=== PATIENT | female | born 1940 | race Caucasian/White ===

== ENCOUNTER 2021-11-22 11:17 | Outpatient (CLI) | payer MEDICARE, SELFPAY ==
--- NOTE | 2021-11-22 11:33 | MM_ITS ---
WS: [id number] BILATERAL DIGITAL SCREENING MAMMOGRAPHY WITH CAD CLINICAL INFORMATION: SCREENING HISTORY: Screening mammogram. No current complaints. COMPARISON: September 23, 2020 TECHNIQUE: Bilateral CC and MLO views. FINDINGS: Scattered fibroglandular densities bilaterally. Punctate and lucent centered calcifications. Vascular calcification. Biopsy marker left breast. No suspicious focal mass, asymmetry, calcifications, or ar chitectural distortion. No evidence of malignancy. MM/[place] [id number] IMPRESSION: BI-RADS: 2-Benign FOLLOW UP: 1 Year Follow-up Recommend return to annual screening mammography.
== END 2021-11-22 11:18 | disposition home or self-care (01) ==
LOC: RADSHAW 11:28
PROVIDERS: PCP Nurse Practitioner Family; Visit Provider Physician Assistant Medical
DX: Z12.31 Encounter for screening mammogram for malignant neoplasm of breast (principal)
CPT/HCPCS: 77067

== ENCOUNTER 2022-12-27 07:33 | Outpatient (CLI) | payer MEDICARE, SELFPAY ==
--- NOTE | 2022-12-27 08:24 | MM_ITS ---
WS: [id number] BILATERAL SCREENING DIGITAL TOMOSYNTHESIS MAMMOGRAM WITH CAD HISTORY: SCREENING COMPARISON: 11/22/2021, 09/23/2020 and 06/28/2018 Bilateral CC and MLO views with tomosynthesis and synthetic mammography submitted. Computer aided det ection analyzed. Breast composition: There are scattered areas of fibroglandular density. No suspicious masses, microc alcifications or architectural distortion. No change in the bilateral breast nodules and calcificatio ns. MM/[place] [id number] IMPRESSION: BI-RADS: 2-Benign FOLLOW UP: 1 Year Follow-up
== END 2022-12-27 07:34 | disposition home or self-care (01) ==
PROVIDERS: PCP Nurse Practitioner Family; Visit Provider Nurse Practitioner Family
DX: Z12.31 Encounter for screening mammogram for malignant neoplasm of breast (principal)
CPT/HCPCS: 77063; 77067

== ENCOUNTER 2024-02-21 09:51 | Outpatient (CLI) | payer MEDICARE, SELFPAY ==
--- NOTE | 2024-02-21 10:00 | MM_ITS ---
WS: [id number] BILATERAL SCREENING DIGITAL TOMOSYNTHESIS MAMMOGRAM WITH CAD HISTORY: SCREENING COMPARISON: 12/27/2022, 11/22/2021, 09/23/2020 Bilateral CC and MLO views with tomosynthesis and synthetic mammography submitted. Computer aided det ection analyzed. Breast composition: There are scattered areas of fibroglandular density. No suspicious masses, microc alcifications or architectural distortion. Bilateral asymmetries, calcifications and nodules within e ach breast are stable over multiple prior years. No new mass or calcification. IMPRESSION: MM/[place] [id number] BI-RADS: 2-Benign FOLLOW UP: 1 Year Follow-up
== END 2024-02-21 09:52 | disposition home or self-care (01) ==
LOC: MOBLMAM 09:57
PROVIDERS: PCP Registered Nurse; Visit Provider Registered Nurse
DX: Z12.31 Encounter for screening mammogram for malignant neoplasm of breast (principal)
CPT/HCPCS: 77063; 77067

== ENCOUNTER → 2024-03-28 14:27 | Outpatient (BNVA) | payer MEDICARE, SELFPAY | PROVIDERS: PCP Registered Nurse; Visit Provider Dermatology | DX: D48.2 Neoplasm of uncertain behavior of peripheral nerves and autonomic nervous system (principal); L72.0 Epidermal cyst; L82.1 Other seborrheic keratosis; B35.1 Tinea unguium; L81.4 Other melanin hyperpigmentation | CPT/HCPCS: 10060; 11102; 99203 ==

== ENCOUNTER 2025-03-26 10:53 | Outpatient (CLI) | payer MEDICARE, SELFPAY ==
--- NOTE | 2025-03-26 11:00 | MM_ITS ---
WS: [id number] BILATERAL 3D TOMOSYNTHESIS DIGITAL SCREENING MAMMOGRAPHY WITH CAD CLINICAL INFORMATION: SCREENING HISTORY: Screening mammogram. No current complaints. COMPARISON: 2023 TECHNIQUE: Bilateral CC and MLO views. FINDINGS: The breasts are composed of heterogeneous fibroglandular density tissue, which can limit the detection of small underlying mass lesions. No suspicious mass, asymmetry, calcifications, or architectural distortion. No evidence of malignancy. Dystrophic calcification RIGHT breast. Vascular calcifications. Biopsy clip LEFT breast MM/MM [facility] tomosynthesis [id number] IMPRESSION: DENSITY: The breasts are heterogeneously dense, which may obscure small masses. BI-RADS: 2 - Benign FOLLOW UP: 1 Year Follow-up Recommend return to annual screening mammography.
== END 2025-03-26 10:54 | disposition home or self-care (01) ==
PROVIDERS: PCP Registered Nurse; Visit Provider Registered Nurse
DX: Z12.31 Encounter for screening mammogram for malignant neoplasm of breast (principal); R92.333 Mammographic heterogeneous density, bilateral breasts; R92.1 Mammographic calcification found on diagnostic imaging of breast
CPT/HCPCS: 77063; 77067

== ENCOUNTER 2025-06-28 13:55 | Observation (INO) | payer MEDICARE, SELFPAY ==
[2025-06-28] VITALS (14 sets, daily range): BP systolic 124–146; BP diastolic 53–77; PULSE 76–106; RESP 18–19; TEMP 36.7–36.8; O2SAT 87–94; BMI 27.9
--- OUTSIDE RECORDS SUMMARY | 2025-06-28 14:04 | XMS_ITS | Encounter Summary ---
Author Organization [facility] Address [address] [place] [address] Care Team Providers Care Industrial Gas Fitter Name Role Phone Erika Saldivar MD Primary Care Provider [phone] Reason for Referral * Radiology Services (Routine) - Closed Specialty Diagnoses / Procedures Referred By Contac t Referred To Contact Radiology Diagnoses Abnormal mammogram Procedures MAMMO DIAG BILAT 3D MAGALI W OR WO CAD MAMMO DIAG UNI LEFT 3D MAGALI W OR WO CAD MAMMO DIAGNOSTIC UNI LEFT W OR WO CAD CHG DIAGNOSTIC MAMMOGRAPHY COMPUTER-AIDED DETCJ UNI CHG DIGITAL BREAST TOMOSYNTHESIS UNILATERAL CHG DIAGNOSTIC MAMMOGRAPHY COMPUTER-AIDED DETCJ BI CHG DIGITAL BREAST TOMOSYNTHESIS BILATERAL Ilan Rushing PA [facility] [address] [address] Phone: tel: fax: Referral ID Status Reason Start Date Expiration Date V isits Requested Visits Authorized [id number] Closed [facility] TO SCHEDULE (SGF) 07/02/2019 08/01/2020 1 1 Encounter Details Date Type Department Care Team (Late st Contact Info) Description 07/04/2019 Ancillary Orders [facility] [place] [address] [facility] [address] [place] [phone] Ilan Rushing PA NO ADDRESS ON FILE Abnormal mammogram Social History Tobacco Use Types Packs/Day Years Used Date Smoking Tobacco: Never Smokeless Tobacco: Never Alcohol Use Standard Drinks/Week Comments No 0 (1 standard drink = 0.6 oz pur e alcohol) Comments No Sex and Gender Information Value Date Recorded Sex Assigned at Not on file 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 Gender Identity Not on file Sexual Orientation Not on file Occupation Industry Job Start Date Job End Date Not on file Not on file Not on file Not on file documented as of this encounter Plan of Treatment Not on file documented as of this encounter Results * MAMMO DIAG BILAT 3D MAGALI W OR WO CAD (07/04/2019 10:36 AM CDT) Anatomical Region Laterality Modality Breast Bilateral Mammography 07/04/2019 10:0 8 AM CDT Narrative 07/04/2019 11:34 AM CDT Bilateral Diagnostic Mammogram, 07/04/2019: HISTORY: The patient is 78 years of age and had a benign left needle core biopsy performed here on 07/31/2018. Six-month follow-up was recommended but the patient did not return for the six month follow-up exam. 3D MLO, medial to lateral, and CC digital tomosynthesis images were acquired and synthesized 2D images (C view) were generated. This digital mammogram was also analyzed by the Computer Aided Detection System (CAD). Right 2-D MLO view was obtained as well. There is average breast parenchymal density. Comparison is made with prior exams of 07/31/2018, 06/28/2018, 01/10/2017, 04/24/2013, 04/10/2013, and 11/14/2007 which is a digitized prior exam. No significant change is seen on either side. No suspicious masses or calcifications are seen. The biopsy site upper inner on the left is stable. No significant change is seen. The patient was given a verbal and written report. Impression: No significant change is seen. I would recommend the patient resume screening mammography in one year. [id number] Ilan MONTANO MAMMO ORDERABLES Final Result documented in this encounter Visit Diagnoses Diagnosis Abnormal mammogram Abnormal mammogram, unspecified Abnormal mammogram Abnormal mammogram, unspecified documented in this encounter Additional Health Concerns Assessment Noted Time PHQ-9 Depression Total Score: 1 06/21/20 18 8:00 AM CDT documented as of this encounter Care Teams Industrial Gas Fitter Relationship Specialty Start Date End Date Erika Saldivar MD [address] [phone] PCP - General Family Practice 07/04/18 documented as of this encounter
--- OUTSIDE RECORDS SUMMARY | 2025-06-28 14:04 | XMS_ITS | Encounter Summary ---
Author Organization [facility] Address [address] [place] [address] Care Team Providers Care Advance Seal Delivery System Maintainer Name Role Phone Erika Saldivar MD Primary Care Provider [phone]- [phone] Encounter Details Date Type Department Care Team (Latest Contact Info) Description 11/08/2007 Outpatient Historical [facility] Medicine [address] [phone] Jese Willard MD NO ADDRESS ON FILE Routine Gynecological Examination Social History Tobacco Use Types Packs/Day Years Used Date Smoking Tobacco: Never Assessed Comments Unknown Sex and Gender Information Value Date Recorded Sex Assigned at Not on file 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
--- OUTSIDE RECORDS SUMMARY | 2025-06-28 14:04 | XMS_ITS | Encounter Summary ---
Author Organization [facility] Address [address] [place] [address] Care Team Providers Care Finance Mgr Name Role Phone Erika Saldivar MD Primary Care Provider Encounter Details Date Type Department Care Team (Latest Contact Info) Description 05/03/2000 Outpatient Historical [facility] Calculus of gallbladder without mention of cholecystitis or obstruction (Primary Dx) Social History Tobacco Use Types Packs/Day Years Used Date Smoking Tobacco: Never Assessed Comments Unknown Sex and Gender Information Value Date Recorded Sex Assigned at Not on file 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
--- OUTSIDE RECORDS SUMMARY | 2025-06-28 14:04 | XMS_ITS | Encounter Summary ---
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
--- OUTSIDE RECORDS SUMMARY | 2025-06-28 14:04 | XMS_ITS | Encounter Summary ---
Author Organization [facility] Address [address] [place] [address] Care Team Providers Care Electric Installer Name Role Phone Erika Saldivar MD Primary Care Provider Encounter Details Date Type Department Care Team (Latest Contact Info) Description 04/27/2000 Outpatient Historical [facility] [place] [address] [phone] Osteoarthrosis, unspecified whether generalized or localized, unspecified site (Primary Dx); Allergy, unspecified not elsewhere classified Social History Tobacco Use Types Packs/Day Years Used Date Smoking Tobacco: Never Assessed Comments Unknown Sex and Gender Information Value Date Recorded Sex Assigned at Not on file Legal Sex Female 3:11 AM SOCIAL MEDIA DESIGNER Gender Identity Not on file Sexual Orientation Not on file documented as of this encounter Plan of Treatment Not on file documented as of this encounter Visit Diagnoses Diagnosis Osteoarthrosis, unspecified whether generalized or localized, unspecified site- Primary Allergy, unspecified not elsewhere classified documented in this encounter Care Teams Electric Installer Relationship Specialty Start Date End Date Erika Saldivar MD [address] [phone] PCP - General Family Practice 07/04/18 documented as of this encounter
--- OUTSIDE RECORDS SUMMARY | 2025-06-28 14:04 | XMS_ITS | Clinical Summary ---
Author Organization [employer] Address [address] [facility] [address] Hatchn: Epic Prelude ADT [place]EN[place]ONT [address] Care Team Providers Care Grid Molder Name Role Phone Rm Elliott MD Primary Care Provider [phone] Allergies No known active allergies Medications cetirizine (ZyrTEC) 10 mg tablet Take 10 mg by mouth daily. Active latanoprost (XALATAN) 0.005 % solution INSTILL 1 DROP INTO EACH EYE IN THE EVENING 01/03/20 22 Active multivitamin (DAILY-SAUL) tablet Take 1 Tablet by mouth daily. 08/27/20 15 Active cholecalciferol, vitamin D3, 5,000 unit Take 400 Units by mouth daily. Active triamcinolone acetonide (KENALOG) 0.5 % CreamIndications:D ermatitis Apply to affected area 2 times daily. 15 Gram 01/31/20 24 Active gabapentin (NEURONTIN) 300 mg capsuleIndications :Peripheral polyneuropathy take 1 capsule by mouth three times daily 300 Capsule 2 06/05/20 24 Active fluticasone propionate (FLONASE) 50 mcg/spray [place], Suspension nasal inhalerIndications :Crackling sound in left ear Use 2 spray(s) in each nostril once daily 16 Gram 11/14/19 25 Active potassium CHLORIDE (KLOR-CON M10) 10 mEq Extended Release tabletIndications: HTN (hypertension), benign TAKE 1 TABLET BY MOUTH ONCE DAILY. 100 Tablet 2 02/15/20 25 Active simvastatin (ZOCOR) 20 mg tabletIndications: Hyperlipidemia, unspecified hyperlipidemia type TAKE 1 TABLET BY MOUTH ONCE DAILY AT BEDTIME 100 Tablet 3 02/25/20 25 Active hydroCHLOROthiazid e 12.5 mg tabletIndications: HTN (hypertension), benign TAKE 1 TABLET BY MOUTH ONCE DAILY (DOSE INCREASE) 100 Tablet 3 04/03/20 25 Active amLODIPine (NORVASC) 10 mg tabletIndications: HTN (hypertension), benign Take 1 Tablet (10 mg) by mouth daily. 100 Tablet 2 04/03/20 25 Active predniSONE (DELTASONE) 5 mg tabletIndications: Left-sided low back pain without sciatica, unspecified chronicity Take 6 tablets (all at once) on day 1, then decrease by 1 tablet daily until gone. 21 Tablet 05/27/20 25 Active Additional Information Patient not taking.Reported on 06/19/2025 tiZANidine (ZANAFLEX) 4 mg Tablet Take 1 Tablet (4 mg) by mouth every 8 hours as needed for Spasm. 90 Tablet 06/15/20 25 Active oxyCODONE-acetamin ophen (PERCOCET) 5-325 mg tabletIndications: Cervicalgia Take 1 Tablet by mouth every 6 hours as needed for Pain, Moderate. Max Daily Amount: 4 Tablets 20 Tablet 06/15/20 25 Active cyclobenzaprine (FLEXERIL) 5 mg TabletIndications: Strain of neck muscle, initial encounter Take 1 Tablet (5 mg) by mouth 3 times daily as needed for Spasm. 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 Dysfunction of left eustachian tube 02/28/2017 Lung nodule 02/28/2017 Peripheral neuropathy 03/17/2014 Stress fracture of tibia -left 05/21/2013 Medial meniscus tear-left 05/21/2013 Osteopenia 12/20/2011 Overview (03/11/2021): CT bone densitometry: Spine -1.1 (12/25) Vitamin D deficiency 02/16/2010 Overview (03/11/2021): Vitamin D: 18.9 (01/20) Screen for colon cancer 11/12/2008 Overview (03/11/2021): Colonoscopy: Never Hyperlipidemia Overview (03/11/2021): LDL: 154 (11/24); 165 (10/20) HDL: 44 (11/24) HTN (hypertension), benign Resolved Problems Problem Noted Date Diagnosed Date Resolved Date Type 2 diabetes mellitus wit hout complication, without long-term current use of insulin 08/17/2020 05/19/2021 Bilateral impacted cerumen 08/21/2017 1 11/18/2016 Cervical cancer screening 11/12/2008 Overview (03/10/2021): Pap 10/19: Normal. No hx of abnormals. Osteoporosis screening 11/12/200802/28 Overview (03/10/2021): BMD (11/20): Normal Breast CA Screening 11/12/2008 02/29/20 17 Overview (03/10/2021): Mammo: 03/25; 12/25; 02/20; 11/21; 11/20 Encounters Date Type Department Care Team Description 06/24/[address] [phone] Rm Elliott MD Question 06/19/2025 9:00 AM CDT Office Visit [address] [phone] Lety Arana FNP Strain of neck muscle, sequela (Primary Dx); Follow-up examination; Frail elderly; At high risk for caregiver role strain 06/18/2025 External Device Data STL ABSTRACTION Provider, Abstract 06/17/2025 External Device Data STL ABSTRACTION Provider, Abstract 06/17/2025 External Device Data STL ABSTRACTION Provider, Abstract 06/16/2025 Telephone [facility] [address] [place] [address] Rm Elliott MD Medication Assistance 06/16/2025 Telephone [facility] [address] [place] [address] Rm Elliott MD ER Follow Up 06/15/2025 10:11 AM CDT - 06/15/2025 1:29 PM CDT Emergency [facility] Emergency Medicine [address] [place] [address] Maurizio Cuello DO Cervicalangie (Primary Dx); Leg swelling Discharge Disposition: Home or Self Care 06/15/2025 Travel 06/13/2025 9:01 AM CDT - 06/13/2025 11:59 PM CDT Hospital Encounter [facility] [address] [place] [phone] Lety Arana FNP Discharge Disposition: Home or Self Care 06/13/2025 8:40 AM CDT Office Visit [address] [place] [address] Lety Arana FNP Strain of neck muscle, initial encounter (Primary Dx); Frail elderly; At high risk for caregiver role strain; Right leg swelling 06/13/2025 Results Follow-Up [address] [place] [address] Lety Arana FNP XR CERVICAL SPINE 2 OR 3 VIEWS 06/10/2025 Results Follow-Up [address] [place] [address] Lety Arana FNP US VENOUS DOPPLER LEG RIGHT 06/05/[address] [place] [address] Rm Elliott MD Results 06/04/2025 10:02 AM CDT - 06/04/2025 11:59 PM CDT Hospital Encounter [facility] [address] [place] [address] Lety Arnaa FNP Discharge Disposition: Home or Self Care 06/04/2025 9:20 AM CDT Office Visit [facility] [address] [place] [address] Lety Arana FNP Right calf pain (Primary Dx); Hyperlipidemia, unspecified hyperlipidemia type 05/28/2025 External Device Data STL ABSTRACTION Provider, Abstract 05/27/2025 9:08 AM CDT - 05/27/2025 11:59 PM CDT Hospital Encounter [facility] [address] [place] [address] Lety Arana FNP Discharge Disposition: Home or Self Care 05/27/2025 8:20 AM CDT Office Visit [address] [place] [address] Lety Arana FNP Left-sided low back pain without sciatica, unspecified chronicity (Primary Dx); Frail elderly; Osteopenia, unspecified location; Activity, other caregiving; Urinary frequency 05/27/2025 External Device Data STL ABSTRACTION Provider, Abstract 05/27/2025 Results Follow-Up [address] [place] [address] Lety Arana FNP XR LUMBAR SPINE 2 OR 3 VW, POC URINALYSIS DIPSTICK AUTOMATED, COMPREHENSIVE METABOLIC PANEL, Additional followed-up results: 2 05/27/[address] [place] [address] Lety Arana FNP Medication Assistance 05/13/2025 External Device Data STL ABSTRACTION Provider, Abstract 05/13/2025 External Device Data STL ABSTRACTION Provider, Abstract 05/06/2025 External Device Data STL ABSTRACTION Provider, Abstract 04/16/2025 External Device Data STL ABSTRACTION Provider, Abstract 04/03/2025 Refill [facility] 104 [facility] [address] [place] [phone] Rm Elliott MD HTN (hypertension), benign 04/03/2025 Refill [facility] [place] [address] [place] [phone] Rm Elliott MD HTN (hypertension), benign 03/28/2025 Results Follow-Up [facility] 104 [facility] [address] [place] [phone] Mable Hobson, ONCOLOGY REP SPECIALIST MAMMO 3D MAGALI SCREEN BILAT W OR WO CAD 03/28/2025 Orders Only [facility] [address] [place] [place] [phone] Sharon Castano Breast cancer screening by mammogram from Last 3 Months Immunizations Immunization Administration Dates Next Due (ADACEL/BOOSTRIX)(10 YR UP) TDAP VACCINE, 0.5ML, IM 08/23/2010,08/23/2010 (PFIZER ANEESH)(12 YR UP PRIMA RY SERIES) COVID-19 VACCINE - EMERGENCY USE AUTHORIZATION, MRNA, ANEESH(PF) 30 MCG/0.3 ML IM SUSP 02/22/2022 (PFIZER)(12 YR UP) COVID-19 VACCINE - EMERGENCY USE AUTHORIZATION, MRNA, [id number](PF) 30 MCG/0.3 ML IM SUSP 08/13/2021,01/01/2021,12/11/2020 (PNEUMOVAX 23)(50 YRS UP) PN EUMOCOCCAL POLYSACCHARIDE (PPV23) 0.5 ML, IM 11/08/2007,11/08/2007 (Pfizer Bivalent)(12 Yr Up) COVID-19 Vaccine - Emergency Use Authorization, MRNA, Lnp-S(Pf) 30 Mcg/0.3 Ml Susp 09/13/2022 INFLUENZA VACCINE HIGH DOSE QUADRIVALENT 65 YR UP PF IM 09/12/2023,09/08/2021,08/17/2020,08/17 INFLUENZA VACCINE HIGH DOSE TRIVALENT SPLIT VIRUS, (65 YR UP), 0.5ML (PF), IM 09/04/2024 Influenza Seasonal Unspecifi ed Formulation IM 08/27/2022,10/07/2019,01/06/2019,08/23,10/14/2009,11/12/2008,11/08/2007 ,11/08/2007 Influenza Seasonal Unspecifi ed Formulation PF IM 09/20/2013,10/12/2012,09/30/2011 Influenza Vaccine High Dose 65+ Yrs IM 1 11/13/2016,10/14/2016,10/14/2016,08/11,08/11/2015,09/10/2014,09/10/2014 Influenza Vaccine Split 3+ Yrs IM 08/23/2010,12/2008,11/12/2008 Influenza Vaccine Split 3+ Yrs PF IM 09/20/2013, 10/12/2012,09/30/2011 Family History Medical History Relation Name Comments Heart Disease Brother MAT HALF Breast Cancer Maternal Cousin 50s or 60s Breast Cancer Maternal Grandmother 80s Breast Cancer Mother 80s Other Mother Alzheimer's Colon Cancer Neg Hx Ovarian Cancer Neg Hx Relation Name Status Comments Brother MAT HALF Daughter 1 Alive Daughter 2 Alive Daughter 3 Alive Maternal Cousin Maternal Grandmother Mother Sister MAT HALF Alive Son 1 Alive Son 2 Alive Son 3 Alive Son 4 Alive Social History Tobacco Use Types Packs/Day Years Used Date Smoking Tobacco: Never Passive Smoke Exposure: Never Smokeless Tobacco: Never Tobacco Cessation:Counseling Given: No Alcohol Use Standard Drinks/Week Comments No 0 (1 standard drink = 0.6 oz pur e alcohol) Comments No Sex and Gender Information Value Date Recorded Sex Assigned at Not on file Legal Sex 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 Gender Identity Not on file Sexual Orientation Not on file Last Filed Vital Signs Vital Sign Reading Time Taken Comments Blood Pressure 136/79 06/19/2025 8:54 AM CDT Pulse 82 06/19/2025 8:54 AM CDT Temperature 36.4 C (97.5 F) 06/19/2025 8:54 AM CDT Respiratory Rate 16 06/19/2025 8:54 AM CDT Oxygen Saturation 96% 06/19/2025 8:54 AM CDT Inhaled Oxygen Concentration - - Weight 88.1 kg (194 lb 3.2 oz) 06/19/2025 8:54 A M CDT Height 175.3 cm (5' 9 ) 06/19/2025 8:54 AM CDT Body Mass Index 28.68 06/19/2025 8:54 AM CDT Plan of Treatment Upcoming Encounters Date Type Department Care Team (Late st Contact Info) Description 02/10/2026 10:40 AM CDT Office Visit [facility] [address] [phone] Rm Elliott MD [address] [place] [address] Health Maintenance Due Date Last Done Comments ZOSTER VACCINE (1 of 2) 1992 PNEUMOCOCCAL VACCINE 50+ YEA RS (2 of 2 - PCV) 11/08/2008 11/08/2007, 11/08/2007 OSTEOPOROSIS SCREENING 12/15/2016 2, 12/15/2011, 12/15/2011 RSV VACCINE (60+ or ) (1 - 1-dose 75+ series) 2017 DTAP/TDAP/TD VACCINES (3 - T d or Tdap) 08/23/2020 08/23/2010, 08/23/2010 COVID-19 Vaccine (2023-2 5 season) 2024 09/13/2022, 02/22/2022, 08/13/2021, Additional history exists INFLUENZA VACCINE (#1) 2025 , 09/12/2023, 08/27/2022, Additional history exists Medicare Ad[place] ([place]) Preventative Visit/Annual Wellness Visit Completed 02/10/2025, 02/09/2024, 01/17/2023, Additional history exists Procedures Procedure Name Priority Date/Time Associated Diagnosis Comments CT CERVICAL SPINE WO CONTRAST Stat 06/15/2025 11:18 AM CDT XR CHEST PA AND LATERAL 2 VW Stat 06/15/2025 11:18 AM CDT C-REACTIVE PROTEIN Stat 06/15/2025 10 :43 AM CDT SEDIMENTATION RATE Stat 06/15/2025 10 :43 AM CDT D-DIMER Stat 06/15/2025 10:43 AM CDT CBC WITH DIFFERENTIAL Stat 06/15/2025 10:43 AM CDT COMPREHENSIVE METABOLIC PANEL Stat 06/15/2025 10:43 AM CDT XR CERVICAL SPINE 2 OR 3 VIEWS Routine 06/13/2025 9:18 AM CDT Strain of neck muscle, initial encounter US VENOUS DOPPLER LEG RIGHT Stat 06/04/2025 11:06 AM CDT Right calf pain URINE CULTURE Routine 05/27/2025 2:17 PM CDT Left-sided low back pain without sciatica, unspecified chronicity Urinary frequency XR LUMBAR SPINE 2 OR 3 VW Routine 05/27/2025 9:20 AM CDT Left-sided low back pain without sciatica, unspecified chronicity CBC WITH DIFFERENTIAL Routine 05/27/2025 8:40 AM CDT Left-sided low back pain without sciatica, unspecified chronicity COMPREHENSIVE METABOLIC PANEL Routine 05/27/2025 8:40 AM CDT Left-sided low back pain without sciatica, unspecified chronicity POC URINALYSIS DIPSTICK AUTOMATED Routine 05/27/2025 8:30 AM CDT Left-sided low back pain without sciatica, unspecified chronicity CT BONE DENS STUDY 1+ SITE AXIAL Routine 12/15/2011 from Last 3 Months or Most Recently Relevant to Health Maintenance Results * CT CERVICAL SPINE WO CONTRAST (06/15/2025 11:18 AM CDT) Anatomical Region Laterality Modality Spine Computed Tomogra phy 06/15/2025 10:5 2 AM CDT Impressions 06/15/2025 11:26 AM CDT IMPRESSION: 1. No findings to suggest acute osseous injury to the cervical spine. 2. Right thyroid lobe nodule. Nonemergent follow-up ultrasound in the outpatient setting is recommended for further characterization. Narrative 06/15/2025 11:[address] CERVICAL SPINE WO CONTRAST Reason For Exam: Compression fracture, cervical. Diagnosis: Leg swelling; Cervicalgia. COMPARISON: None FINDINGS: Occipital condyles are intact. Vertebral body heights are preserved. Atlantodental interval is within normal limits. No acute fracture or subluxation is seen. Precervical soft tissues are grossly unremarkable. No epidural hematoma is noted. Moderate/severe multilevel degenerative changes are again noted throughout the cervical spine. 2.2 cm right thyroid lobe nodules incidentally noted. Procedure Note Anil Albarran MD - 06/15/2025 CT CERVICAL SPINE WO CONTRAST Reason For Exam: Compression fracture, cervical. Diagnosis: Leg swelling; Cervicalgia. COMPARISON: None FINDINGS: Occipital condyles are intact. Vertebral body heights are preserved. Atlantodental interval is within normal limits. No acute fracture or subluxation is seen. Precervical soft tissues are grossly unremarkable. No epidural hematoma is noted. Moderate/severe multilevel degenerative changes are again noted throughout the cervical spine. 2.2 cm right thyroid lobe nodules incidentally noted. IMPRESSION: 1. No findings to suggest acute osseous injury to the cervical spine. 2. Right thyroid lobe nodule. Nonemergent follow-up ultrasound in the outpatient setting is recommended for further characterization. Maurizio Cuello DO CT ORDERABLES Final Result * XR CHEST PA AND LATERAL 2 VW (06/15/2025 11:18 AM CDT) Anatomical Region Laterality Modality Chest Computed Radiogr aphy 06/15/2025 11:1 8 AM CDT Impressions 06/15/2025 11:26 AM CDT IMPRESSION: No acute cardiopulmonary process. Narrative 06/15/2025 11:26 AM CDT XR CHEST PA AND LATERAL 2 VW Reason For Exam: Shortness of Breath SOB. Diagnosis: Leg swelling; Cervicalgia. COMPARISON: None FINDINGS: Right midlung calcified granuloma. Cardiomediastinal silhouette is within normal limits. No focal consolidation, pleural effusion, or pneumothorax is seen. No acute osseous abnormality is appreciated. Procedure Note Anil Albarran MD - 06/15/2025 XR CHEST PA AND LATERAL 2 VW Reason For Exam: Shortness of Breath SOB. Diagnosis: Leg swelling; Cervicalgia. COMPARISON: None FINDINGS: Right midlung calcified granuloma. Cardiomediastinal silhouette is within normal limits. No focal consolidation, pleural effusion, or pneumothorax is seen. No acute osseous abnormality is appreciated. IMPRESSION: No acute cardiopulmonary process. Mauriziomalathi Cuello DIAGNOSTIC IMAGING ORDERABLES Final Result * (ABNORMAL) CBC WITH DIFFERENTIAL (06/15/2025 10:43 AM CDT) Only the most recent of2 resultswithin the time period is included. WBC 12.2(H) 4.0 - 10.0 K/uL 06/15/2025 10:55 AM [facility] RBC 4.89 3.93 - 5.22 M/uL 06/15/2025 10:55 AM [facility] HEMOGLOBIN 14.4 11.2 - 15.7 g/dL 06/15/2025 10:55 AM [facility] HEMATOCRIT 42.3 34.1 - 44.9 % 06/15/2025 10:55 AM [facility] MCV 86.5 79.4 - 94.8 fL 06/15/2025 10:55 AM [facility] MCH 29.4 25.6 - 32.2 pg 06/15/2025 10:55 AM [facility] MCHC 34.0 32.2 - 35.5 g/dL 06/15/2025 10:55 AM [facility] RDW 13.3 11.0 - 14.5 % 06/15/2025 10:55 AM [facility] RDW-STDEV 42.5 36.9 - 56.9 fL 06/15/2025 10:55 AM [facility] PLATELETS 323 163 - 337 K/uL 06/15/2025 10:55 AM [facility] MPV 10.2 10.0 - 14.8 fL 06/15/2025 10:55 AM [facility] NEUTROPHILS 69 34 - 71 % 06/15/2025 10:55 AM [facility] LYMPHOCYTES 19 19 - 52 % 06/15/2025 10:55 AM [facility] MONOCYTES 11 5 - 13 % 06/15/2025 10:55 AM [facility] EOSINOPHILS 0(L) 1 - 6 % 06/15/2025 10:55 AM [facility] BASOPHILS 0 0 - 1 % 06/15/2025 10:55 AM [facility] IMMATURE GRANULOCYTES 0 % 06/15/2025 10:55 AM [facility] NEUTROPHIL ABSOLUTE 8.45(H) 1.56 - 6.13 K/uL 06/15/2025 10:55 AM [facility] LYMPHOCYTE ABSOLUTE 2.26 1.20 - 3.40 K/uL 06/15/2025 10:55 AM [facility] MONOCYTE ABSOLUTE 1.34(H) 0.24 - 0.36 K/uL 06/15/2025 10:55 AM [facility] EOSINOPHIL ABSOLUTE 0.04 0.04 - 0.36 K/uL 06/15/2025 10:55 AM [facility] BASOPHILS ABSOLUTE 0.05 0.01 - 0.08 K/uL 06/15/2025 10:55 AM [facility] IMMATURE GRANULOCYTES ABSOLUTE 0.05 K/uL 06/15/2025 10:55 AM [facility] Blood Venipuncture / Unknown 06/15/2025 10:43 AM CDT 06/15/2025 10:49 AM CDT us Maurizio Cuello DO HEMATOLOGY ORDERABLES Final [id number] [address] [place] [address] * (ABNORMAL) SEDIMENTATION RATE (06/15/2025 10:43 AM CDT) ESR (SEDIMENTATION RATE) 49(H) 0 - 30 mm/Hr 06/15/2025 10:57 AM CDT [facility] Blood Venipuncture / Unknown 06/15/2025 10:43 AM CDT 06/15/2025 10:49 AM CDT Narrative [facility] - 06/15/2025 10:57 AM CDT Tube Lot: #[id number] Exp Date: 11/12/2026 QC1 LOT [id number] EXP.11/17/2025 QC2 LOT [id number] EXP.11/17/2025 Maurizio Cuello DO HEMATOLOGY ORDERABLES Final R esult [facility] CLIA # [id number] [address] [place] [id number] * (ABNORMAL) D-DIMER (06/15/2025 10:43 AM CDT) Pathologist [facility] D-DIMER QUANT 0.80(H) <0.50 ug/mL FEU 06/15/2025 11:06 AM CDT [facility] Blood Venipuncture / Unknown 06/15/2025 10:43 AM CDT 06/15/2025 10:49 AM CDT Narrative [facility] - 06/15/2025 11:06 AM CDT D-Dimer assay cutoff value for exclusion of DVT and/or PE is <0.50 ug/mL FEU. As D-Dimer levels increase naturally with age, age stratification for patients over 50 is potentially more appropriate in determining whether a patient should undergo further evaluation for DVT and/or PE than a general cutoff of 0.50 ug/mL FEU. Clinical consideration is recommended. Age Stratified Cutoff Values: 50-60 years: 0.50-0.60 ug/mL FEU 61-70 years: 0.61-0.70 ug/mL FEU 71-80 years: 0.71-0.80 ug/mL FEU Maurizio Khushboo ABBOTT HEMATOLOGY ORDERABLES Final R esult [facility] CLIA # [id number] [address] [place] [address] * (ABNORMAL) C-REACTIVE PROTEIN (06/15/2025 10:43 AM CDT) CRP 129.0(H) <5.0 mg/L 06/15/2025 11:13 AM T [facility] Blood Venipuncture / Unknown 06/15/2025 10:43 AM CDT 06/15/2025 10:49 AM CDT Maurizio Cuello DO CHEMISTRY ORDERABLES Final Re sult Performing Organization Address City/[facility]/ZIP Co de Phone Number [facility] CLIA # [id number] [address] [place] [id number] * (ABNORMAL) COMPREHENSIVE METABOLIC PANEL (06/15/2025 10:43 AM CDT) Only the most recent of2 resultswithin the time period is included. Pathologist [facility] SODIUM 138 136 - 145 mmol/L 06/15/2025 11:13 AM [facility] POTASSIUM 4.0 3.5 - 5.1 mmol/L 06/15/2025 11:13 AM [facility] CHLORIDE 99 98 - 107 mmol/L 06/15/2025 11:13 AM [facility] CO2 27 22 - 29 mmol/L 06/15/2025 11:13 AM [facility] CALCIUM 11.1(H) 8.8 - 10.2 mg/dL 06/15/2025 11:13 AM [facility] BUN 13 8 - 23 mg/dL 06/15/2025 11:13 AM [facility] CREATININE 0.98(H) 0.51 - 0.95 mg/dL 06/15/2025 11:13 AM [facility] Comment:The GFR result is no t clinically significant on patients <18 or >70 years of age. GLUCOSE 119(H) 74 - 99 mg/dL 06/15/2025 11:13 AM [facility] TOTAL PROTEIN 7.6 6.6 - 8.7 g/dL 06/15/2025 11:13 AM [facility] ALBUMIN 3.8 3.5 - 5.2 g/dL 06/15/2025 11:13 AM [facility] BILIRUBIN TOTAL 0.6 0.0 - 1.2 mg/dL 06/15/2025 11:13 AM [facility] ALKALINE PHOSPHATASE 95 35 - 104 U/L 06/15/2025 11:13 AM [facility] AST 16 0 - 35 U/L 06/15/2025 11:13 AM [facility] ALT 6 0 - 35 U/L 06/15/2025 11:13 AM [facility] GFR 58 mL/min/1.7 3 sq meter 06/15/2025 11:13 AM [facility] Comment:eGFR calculated with 2020 CKD-EPI equation. Vegetarian diet, extremely high or low muscle mass, and may affect results. Cystatin C with Glomerular Filtration Rate is a suitable alternative for these patients. ANION GAP 12 5 - 20 mmol/L 06/15/2025 11:13 AM T [facility] Blood Venipuncture / Unknown 06/15/2025 10:43 AM CDT 06/15/2025 10:49 AM CDT us Maurizio Cuello DO CHEMISTRY ORDERABLES Final Re sult [facility] CLIA # [id number] [address] [place] [id number] * XR CERVICAL SPINE 2 OR 3 VIEWS (06/13/2025 9:18 AM CDT) Anatomical Region Laterality Modality Spine Computed Radiogr aphy 06/13/2025 9:18 AM CDT Impressions 06/13/2025 10:05 AM CDT IMPRESSION: See below. Exam: XR CERVICAL SPINE 2 OR 3 VIEWS Date/Time of Exam: 06/13/2025 9:18 AM Reason For Exam: See Diagnosis. Diagnosis: Strain of neck muscle, initial encounter. Prior: None Findings: Normal cervical lordosis. Craniocervical junction is well aligned. No acute fracture or aggressive osseous lesion. Moderate loss of disc height seen at the cervical spine. Moderate multilevel facet arthropathy. No prevertebral soft tissue swelling. Unchanged right upper lung calcified granuloma. Narrative Procedure Note Mumtaz Garrido, DO - 06/13/2025 IMPRESSION: See below. Exam: XR CERVICAL SPINE 2 OR 3 VIEWS Date/Time of Exam: 06/13/2025 9:18 AM Reason For Exam: See Diagnosis. Diagnosis: Strain of neck muscle, initial encounter. Prior: None Findings: Normal cervical lordosis. Craniocervical junction is well aligned. No acute fracture or aggressive osseous lesion. Moderate loss of disc height seen at the cervical spine. Moderate multilevel facet arthropathy. No prevertebral soft tissue swelling. Unchanged right upper lung calcified granuloma. us Lety Arana ONCOLOGY REP SPECIALIST DIAGNOSTIC IMAGING ORDERABL ES Final Result * US VENOUS DOPPLER LEG RIGHT (06/04/2025 11:06 AM CDT) Anatomical Region Laterality Modality Lower Extremity Ultrasound 06/04/2025 10:4 8 AM CDT Narrative 06/09/2025 8:[address] [facility] Radiology Services - Noninvasive Vascular [address] [address] Noninvasive Vascular Lab Venous Exam Unilateral Lower Extremity Duplex Patient: Haim Huynh Study ID: [id number] Gender: F : 1940 Age: 84 Room: Height: Weight: BSA: Pt status: Outpatient Study Date: 06/04/2025 Study Time: 10:48:33 AM BSA: Ordering: Lety Arana Interpreting:[employer] Researcher: Coni Kaur Summary Impression: No evidence of deep vein thrombosis involving the right lower extremity. Study data: Right lower extremity venous ultrasound evaluation. Doppler flow study including spectral analysis, color and nino scale imaging. Location: Vascular laboratory. Patient status: Outpatient. Study status: Routine. Procedure: A vascular evaluation was performed. Image quality was good. Venous flow and imaging: - Right common femoral Patent; Normal phasicity; spontaneous; compressible; normal augmentation - Right profunda femoral Patent; Normal phasicity; spontaneous; compressible; normal augmentation - Right femoral Patent; Normal phasicity; spontaneous; compressible; normal augmentation - Right popliteal Patent; Normal phasicity; spontaneous; compressible; normal augmentation - Right posterior tibial Patent; Compressible; normal augmentation - Right peroneal Patent; Compressible; normal augmentation - Right anterior tibial Patent; Compressible; normal augmentation Prepared and Electronically Authenticated Prince Ashlyn Confirmed 06/09/2025 20:40 Procedure Note Prince Goldberg MD - 06/09/2025 [facility] Radiology Services - Noninvasive Vascular [address] [address] Noninvasive Vascular Lab Venous Exam Unilateral Lower Extremity Duplex Patient: Haim Huynh Study ID: [id number] Gender: F : 1940 Age: 84 Room: Height: Weight: BSA: Pt status: Outpatient Study Date: 06/04/2025 Study Time: 10:48:33 AM BSA: Ordering: Lety Arana Interpreting:Prince Ashlyn Swine Genetics Researcher: Coni Kaur Summary Impression: No evidence of deep vein thrombosis involving the right lower extremity. Study data: Right lower extremity venous ultrasound evaluation.Doppler flow study including spectral analysis, color and nino scale imaging. Location: Vascular laboratory. Patient status: Outpatient. Study status: Routine. Procedure: A vascular evaluation was performed.Image quality was good. Venous flow and imaging: - Right common femoral Patent; Normal phasicity; spontaneous;compressible; normal augmentation - Right profunda femoral Patent; Normal phasicity; spontaneous;compressible; normal augmentation - Right femoral Patent; Normal phasicity; spontaneous; compressible;normal augmentation - Right popliteal Patent; Normal phasicity; spontaneous; compressible;normal augmentation - Right posterior tibial Patent; Compressible; normal augmentation - Right peroneal Patent; Compressible; normal augmentation - Right anterior tibial Patent; Compressible; normal augmentation Prepared and Electronically Authenticated Prince Yumiko Goldberg 06/09/2025 20:40 us Lety Arana [facility] US ORDERABLES Final Resul t * URINE CULTURE (05/27/2025 2:17 PM CDT) URINE CULTURE SEE NOTE [employer] Comment: CULTURE, URINE, ROUTINE Micro Number: [id number] Test Status: Final Specimen Source: Urine, clean catch Specimen Quality: Adequate Result: Mixed genital janki isolated. These superficial bacteria are not indicative of a urinary tract infection. No further organism identification is warranted on this specimen. If clinically indicated, recollect clean-catch, mid-stream urine and transfer immediately to Urine Culture Transport Tube. Test Performed at: [facility] [address] [place] [address] Joe Hanna MD Urine URINE SPECIMEN OBTAINED BY CLEAN CATCH PROCEDURE / Unknown 05/27/2025 2:17 PM CDT 05/28/2025 6:33 AM CDT Lety Arana [facility] MICROBIOLOGY - GENERAL TRAN BARRAZA Final Result [facility] [phone] [facility] [address] [place] [address] * XR LUMBAR SPINE 2 OR 3 VW (05/27/2025 9:20 AM CDT) Anatomical Region Laterality Modality Spine Computed Radiogr aphy 05/27/2025 9:21 AM CDT Impressions 05/27/2025 10:14 AM CDT IMPRESSION: Please see below. EXAM: XR LUMBAR SPINE 2 OR 3 VW DATE/TIME OF EXAM: 05/27/2025 9:20 AM REASON FOR STUDY: See Diagnosis DIAGNOSIS: Left-sided low back pain without sciatica, unspecified chronicity COMPARISON: December 18, 2023 FINDINGS: Bones: No evidence of an acute fracture. Mineralization: Demineralization. Alignment: Right convex scoliosis. Slight retrolisthesis of L3 on L4. Degenerative Changes: Multilevel intervertebral disc space narrowing and facet arthropathy. Soft Tissue: No acute abnormality. IMPRESSION: No acute bony finding. Narrative 05/27/2025 10:14 AM CDT Procedure Note Marlin Thomas MD - 05/27/2025 IMPRESSION: Please see below. EXAM: XR LUMBAR SPINE 2 OR 3 VW DATE/TIME OF EXAM: 05/27/2025 9:20 AM REASON FOR STUDY: See Diagnosis DIAGNOSIS: Left-sided low back pain without sciatica, unspecified chronicity COMPARISON: December 18, 2023 FINDINGS: Bones: No evidence of an acute fracture. Mineralization: Demineralization. Alignment: Right convex scoliosis. Slight retrolisthesis of L3 on L4. Degenerative Changes: Multilevel intervertebral disc space narrowing and facet arthropathy. Soft Tissue: No acute abnormality. IMPRESSION: No acute bony finding. Lety Arana ONCOLOGY REP SPECIALIST DIAGNOSTIC IMAGING ORDERABL ES Final Result * (ABNORMAL) POC URINALYSIS DIPSTICK AUTOMATED (05/27/2025 8:30 AM CDT) COLOR UA POC Yellow Pale to Dark Yellow [facility] CLARITY UA POC Slightly Cloudy(A) Clear, Other [facility] GLUCOSE UA POC Negative Negative, Normal [facility] BILIRUBIN UA POC 1+(A) Negative [facility] UA POC 1+(A) Negative [facility] SPECIFIC GRAVITY UA POC 1.020 1.000 - 1.030 [facility] BLOOD UA POC Negative Negative [facility] PH UA POC 7.0 5.0 - 8.0 [facility] PROTEIN UA POC 2+(A) Negative [facility] UROBILINOGEN UA POC 0.2 <2.0 mg/dL [facility] NITRITE UA POC Negative Negative [facility] LEUKOCYTE ESTERASE UA POC 1+(A) Negative [facility] KIT LOT NUMBER POC [phone] [facility] KIT EXP DATE POC 01/10/2026 [facility] Urine 05/27/2025 8:30 AM CDT Lety Arana ONCOLOGY REP SPECIALIST POINT OF CARE TESTING Final Result [facility] CLIA# [id number] [address] [place] [address] * CT BONE DENS STUDY 1+ SITE AXIAL (12/15/2011) Anatomical Region Laterality Modality Other Jese Willard MD CT ORDERABLES Final Resu lt from Last 3 Months or Most Recently Relevant to Health Maintenance Insurance [facility] MEDICARE HMO Care Teams Grid Molder Relationship Specialty Start Date End Date Rm Elliott MD [address] [place] [id number] PCP - General Family Practice 01/12/22
--- OUTSIDE RECORDS SUMMARY | 2025-06-28 14:04 | XMS_ITS | Clinical Summary ---
Author Organization [facility] Address [address] [place] [address] Care Team Providers Care Top Dyeing Machine Tender Name Role Phone Erika Saldivar MD Primary Care Provider Allergies No known active allergies Medications multivitamin (DAILY-SAUL) tablet Take 1 Tablet by mouth daily. Active ibuprofen (MOTRIN) 800 mg tabletIndications:A cute right-sided low back pain without sciatica Take 1 Tablet (800 mg) by mouth every 8 hours as needed for Pain. 30 Tablet 0 6 Active gabapentin (NEURONTIN) 300 mg capsuleIndications: Peripheral polyneuropathy TAKE 1 CAPSULE BY MOUTH THREE TIMES DAILY 270 Capsule 1 1 Active HYDROCHLOROTHIAZIDE 25 mg tabletIndications:H TN (hypertension), benign Take 1 tablet by mouth once daily 90 Tablet 1 1 Active amLODIPine (NORVASC) 10 mg tabletIndications:H TN (hypertension), benign Take 1 tablet by mouth once daily 90 Tablet 1 1 Active potassium chloride (KLOR-CON) 10 mEq Extended Release tabletIndications:H TN (hypertension), benign One tablet daily by mouth. 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 08/21/2017 Dysfunction of left eustachian tube 02/28/2017 Lung nodule 02/28/2017 Peripheral neuropathy 03/17/2014 Stress fracture of tibia -left 05/21/2013 Medial meniscus tear-left 05/21/2013 Osteopenia 12/20/2011 Overview (12/20/2011): CT bone densitometry: Spine -1.1 (12/25) Vitamin D deficiency 02/16/2010 Overview (02/16/2010): Vitamin D: 18.9 (01/20) Screen for colon cancer 11/12/2008 Overview (11/12/2008): Colonoscopy: Never HTN (hypertension), benign Hyperlipidemia Overview (11/26/2011): LDL: 154 (11/24); 165 (10/20) HDL: 44 (11/24) Resolved Problems Problem Noted Date Diagnosed Date Resolved Date Bilateral impacted cerumen 08/21/2017 1 11/18/2016 Osteoporosis screening 11/12/200802/28 Overview (11/12/2008): BMD (11/20): Normal Breast CA Screening 11/12/2008 02/29/20 17 Overview (04/25/2013): Mammo: 03/25; 12/25; 02/20; 11/21; 11/20 Cervical cancer screening 11/12/2008 Overview (11/12/2008): Pap 10/19: Normal. No hx of abnormals. Immunizations Immunization Administration Dates Next Due (ADACEL/BOOSTRIX)(10 YR UP) TDAP VACCINE, 0.5ML, IM 08/23/2010 (PFIZER)(12 YR UP) COVID-19 VACCINE - EMERGENCY USE AUTHORIZATION, MRNA, [id number](PF) 30 MCG/0.3 ML IM SUSP 01/01/2021 (PNEUMOVAX 23)(50 YRS UP) PNEUMOCOCCAL POLYSACCHARIDE (PPV23) 0.5 ML, IM 11/08/2007 INFLUENZA VACCINE HIGH DOSE QUADRIVALENT 65 YR UP PF IM 08/17/2020 08/17/2021 Influenza Seasonal Unspecifi ed Formulation IM 10/07/2019,01/06/2019,11/08/2007 Influenza Vaccine High Dose 65+ Yrs IM 09/13/2017,10/14/2016,08/11/2015,08/14 Influenza Vaccine Split 3+ Yrs IM 08/23/2010,12/2008,11/12/2008 [...] drink = 0.6 oz pur e alcohol) Education Answer Date Recorded What is the highest level of school you have completed or the highest degree you have received? High school graduate 11/11/2020 Comments No Sex and Gender Information Value Date Recorded Sex Assigned at Not on file Legal Sex Female 3:11 AM INSURANCE ADJUSTER Gender Identity Not on file Sexual Orientation Not on file Occupation Industry Job Start Date Job End Date Not on file Not on file Not on file Not on file Last Filed Vital Signs Vital Sign Reading Time Taken Comments Blood Pressure 128/62 11/11/2020 3:29 PM INSURANCE ADJUSTER Pulse 74 11/11/2020 3:29 PM INSURANCE ADJUSTER Temperature 36.7 C (98 F) 11/11/2020 3:29 PM INSURANCE ADJUSTER Respiratory Rate 19 11/11/2020 3:29 PM INSURANCE ADJUSTER Oxygen Saturation 93% 11/11/2020 3:29 PM INSURANCE ADJUSTER Inhaled Oxygen Concentration - - Weight 99.5 kg (219 lb 6.4 oz) 11/11/2020 3:29 P M INSURANCE ADJUSTER Height 175.3 cm (5' 9 ) 11/11/2020 3:29 PM INSURANCE ADJUSTER Body Mass Index 32.4 11/11/2020 3:29 PM INSURANCE ADJUSTER Plan of Treatment Health Maintenance Due Date Last Done Comments DIABETES ANNUAL FOOT EXAM 1958 ZOSTER VACCINE (1 of 2) 1992 PNEUMOCOCCAL VACCINE 50+ YEA RS (2 of 2 - PCV) 11/08/2008 11/08/2007 OSTEOPOROSIS SCREENING 12/15/2016 2, 12/15/2011, 12/15/2011 RSV VACCINE (60+ or ) (1 - 1-dose 75+ series) 2017 DTAP/TDAP/TD VACCINES (2 - T d or Tdap) 08/23/2020 08/23/2010 DIABETES ANNUAL RETINAL EXAM 09/16/202002/2019, 09/16/2019, 04/09/2019, Additional history exists DIABETES HBA1C Q 6 MONTHS 05/12/20212019, 08/18/2020, 10/24/2019, Additional history exists DIABETES MICROALBUMIN ANNUAL SCREEN 08/18/2021 08/18/2020 LDL CHOLESTEROL ANNUAL 11/12/2021 0, 08/18/2020, 10/24/2019, Additional history exists COVID-19 Vaccine (2 - 2023-2 5 season) 2024 01/01/2021 Medicare Advantage (ID) Preventative Visit/Annual Wellness Visit 11/13/2024 11/11/2020, 06/21/2018 INFLUENZA VACCINE (#1) 2025 0, 10/07/2019, 01/06/2019, Additional history exists Flex Sig/CT Colonography Q 5 years Discontinued 11/01/2000, 10/19/2000 Colorectal Cancer Screening Discontinued FIT/FOBT Q 1 year Discontinued 03/20/2002, , 08/11/1999 COLORECTAL SCREENING Discontinued FIT-DNA Q 3 years Discontinued Procedures Procedure Name Priority Date/Time Associated Diagnosis Comments LDL CHOLESTEROL, DIRECT Routine 11/12/2020 8:46 AM INSURANCE ADJUSTER Hyperlipidemia, unspecified hyperlipidemia type HEMOGLOBIN A1C Routine 11/12/2020 8:46 AM INSURANCE ADJUSTER Prediabetes MICROALBUMIN/CREATI NINE RATIO, RANDOM UR Routine 08/18/2020 9:25 AM CDT Type 2 diabetes mellitus without complication, without long-term current use of insulin ([facility]) CT BONE DENS STUDY 1+ SITE AXIAL Routine 12/15/2011 from Last 3 Months or Most Recently Relevant to Health Maintenance Results * (ABNORMAL) LDL CHOLESTEROL, DIRECT (11/12/2020 8:46 AM INSURANCE ADJUSTER) LDL CHOLESTEROL, DIRECT 162(H) <100 mg/dL 11/12/2020 8:22 PM INSURANCE ADJUSTER [facility] Blood Collection / Unknown 11/12/2020 8:46 AM INSURANCE ADJUSTER 11/12/2020 7:43 PM INSURANCE ADJUSTER [facility] - 11/12/2020 8:22 PM INSURANCE ADJUSTER LDL CHOLESTEROL mg/dL LDL <70, OPTIMAL if have Atherosclerotic cardiovascular disease (ASCVD) or intermediate or higher (>7.5%) 10 year risk of ASCVD including most adults with diabetes. LDL <100, Optimal in adult patients with low (<7.5%) 10 year ASCVD risk LDL 100-160, Suboptimal LDL >160, High LDL >190, Very high Based on AHA/NCEP guidelines Ilan MONTANO CHEMISTRY ORDERABLES Final Re sult [facility] CLIA# [id number] [facility] [place] [place] [address] * (ABNORMAL) HEMOGLOBIN A1C (11/12/2020 8:46 AM INSURANCE ADJUSTER) HEMOGLOBIN A1C 5.7(H) See Comment % 11/12/2020 8:16 PM INSURANCE ADJUSTER [facility] EST. AVG GLUCOSE, A1C 117 mg/dL 11/12/2020 8:16 PM INSURANCE ADJUSTER [facility] Blood Collection / Unknown 11/12/2020 8:46 AM INSURANCE ADJUSTER 11/12/2020 7:43 PM [facility] 11/12/2020 8:16 PM INSURANCE ADJUSTER HGB A1C INTERPRETATION NORMAL: <5.7% PRE-DIABETES: 5.7 - 6.4% DIABETES: 6.5% OR GREATER Falsely low A1C measurements can occur when: 1. Anemia and/or hemolytic anemia is present. 2. Hemoglobin variants present. 3. Renal failure. 4. Transfusion of blood product in the last 120 days. We recommend ordering a fructosamine test([id number]) to more accurately assess glycemic status if any of the above conditions are present. Ilan MONTANO CHEMISTRY ORDERABLES Final Re sult Performing Organization Address [facility] Co de Phone Number [facility] [facility] CLIA# [id number] [address] [place] [address] * MICROALBUMIN/CREATININE RATIO, RANDOM UR (08/18/2020 9:25 AM CDT) MICROALBUMIN, URINE 1.5 No Reference Range mg/dL 08/18/2020 9:42 PM CDT [facility] CREATININE, URINE 218.1 29.0 - 226.0 mg/dL 08/18/2020 9:42 PM CDT [facility] Comment:Reference Range vari es with fluid intake and diet. MICROALBUMIN/C REAT RATIO, UR 6.9 <25.0 mg/g 08/18/2020 9:42 PM CDT [facility] Urine URINE SPECIMEN OBTAINED BY CLEAN CATCH PROCEDURE / Unknown Collection / Unknown 08/18/2020 9:25 AM CDT 08/18/2020 7:59 PM CDT Narrative [facility] - 08/18/2020 9:42 PM CDT Condition Microalbumin/Creat ratio Normal Males <17 Normal Females <25 Microalbuminuria Males 17-299 Microalbuminuria Females 25-299 Overt proteinuria >=300 Ilan MONTANO URINE ORDERABLES Final Result Performing Organization Address [facility]/ZIP Co de Phone Number [facility] CLIA# [id number] [address] [place] [address] * CT BONE DENS STUDY 1+ SITE AXIAL (12/15/2011) Anatomical Region Laterality Modality Other Jese Willard MD CT ORDERABLES Edited from Last 3 Months or Most Recently Relevant to Health Maintenance Insurance [facility] Care Teams Top Dyeing Machine Tender Relationship Specialty Start Date End Date Erika Saldivar MD [address] [phone] PCP - General Family Practice 07/04/18
--- OUTSIDE RECORDS SUMMARY | 2025-06-28 14:04 | XMS_ITS | Encounter Summary ---
Author Organization [facility] Address [address] [place] [address] Care Team Providers Care Tuber Operator Name Role Phone Erika Saldivar MD Primary Care Provider Encounter Details Date Type Department Care Team (Latest Contact Info) Description 11/01/2000 Outpatient Historical [address] [phone] Screening for malignant neoplasm of the rectum (Primary Dx) Social History Tobacco Use Types Packs/Day Years Used Date Smoking Tobacco: Never Assessed Comments Unknown Sex and Gender Information Value Date Recorded Sex Assigned at Not on file Legal Sex Female 3:11 AM CURTAIN CUTTER Gender Identity Not on file Sexual Orientation Not on file documented as of this encounter Plan of Treatment Not on file documented as of this encounter Visit Diagnoses Diagnosis Screening for malignant neoplasm of the rectum- Primary documented in this encounter Care Teams Tuber Operator Relationship Specialty Start Date End Date Erika Saldivar MD [address] [phone] PCP - General Family Practice 07/04/18 documented as of this encounter
--- OUTSIDE RECORDS SUMMARY | 2025-06-28 14:04 | XMS_ITS | Encounter Summary ---
Author Organization [facility] Address [address] [place] [address] Care Team Providers Care Radio Program Director Name Role Phone Erika Saldivar MD Primary Care Provider [phone] Reason for Referral * Outpatient Services (Routine) - Closed Specialty Diagnoses / Procedures Referred By Contac t Referred To Contact Diagnoses Other (abnormal) findings on radiological examination of breast Procedures MAMMO DIGITAL DIAG UNI LEFT Jese Willard MD NO ADDRESS ON FILE [facility] Pre-Registration [place] CALL TO MAKE APPOINTMENT ONLY [address] [place] [address] Phone: tel: fax: Referral ID Status Reason Start Date Expiration Date Visits Re quested Visits Authorized [id number] Closed 04/24/2013 05/25/2014 1 1 Encounter Details Date Type Department Care Team (Latest Contact Info) Description 04/24/2013 Ancillary Orders [facility] [address] [phone] Jese Willard MD NO ADDRESS ON FILE Other (abnormal) findings on radiological examination of breast (Primary Dx) Social History Tobacco Use Types Packs/Day Years Used Date Smoking Tobacco: Never Alcohol Use Standard Drinks/Week Comments No 0 (1 standard drink = 0.6 oz pur e alcohol) Comments No Sex and Gender Information Value Date Recorded Sex Assigned at Not on file Legal Sex Female 3:11 AM PERSONAL LINES INSURANCE AGENT Gender Identity Not on file Sexual Orientation Not on file Occupation Industry Job Start Date Job End Date Not on file Not on file Not on file Not on file documented as of this encounter Plan of Treatment Not on file documented as of this encounter Results * MAMMO DIGITAL DIAG UNI LEFT (04/24/2013 10:30 AM CDT) Anatomical Region Laterality Modality Breast Left Mammography 04/24/2013 10:0 3 AM CDT Impressions 04/25/2013 4:58 PM CDT IMPRESSION: No imaging evidence of malignancy. RECOMMENDATION: Annual screening mammography. The patient received a results and recommendation letter. Mendel - uploaded from [employer] 04/25/2013 4:58 PM CDT EXAM: Left digital diagnostic mammography with CAD. EXAM DATE: 04/24/2013. INDICATION: The patient was recalled from her screening mammogram performed on 04/10/2013 for additional imaging evaluation of a density in the lateral right breast. The patient has no current complaint. COMPARISON: Mammography dated 04/10/2013, 12/15/2011, 02/17/2010, 11/18/2008, 11/14/2007. Correlation is made to the left breast ultrasound performed on 07/14/2009 and 11/18/2008. TECHNIQUE: Left digital mammographic imaging, standard CC, LM and spot compression left CC. CAD was utilized. FINDINGS: The breast parenchyma demonstrates scattered fibroglandular densities. With additional imaging the density in the lateral right breast does not persist. With additional imaging the left breast parenchyma is unchanged from the mammogram performed on 11/14/2007. No suspicious calcification or mass. This digital mammogram was also analyzed by the Computer Aided Detection System (CAD), [employer], Version 8.3. Procedure Note James An MD - 04/25/2013 EXAM: Left digital diagnostic mammography with CAD. EXAM DATE: 04/24/2013. INDICATION: The patient was recalled from her screening mammogram performed on 04/10/2013 for additional imaging evaluation of a density in the lateral right breast. The patient has no current complaint. COMPARISON: Mammography dated 04/10/2013, 12/15/2011, 02/17/2010, 11/18/2008, 11/14/2007. Correlation is made to the left breast ultrasound performed on 07/14/2009 and 11/18/2008. TECHNIQUE: Left digital mammographic imaging, standard CC, LM and spot compression left CC. CAD was utilized. FINDINGS: The breast parenchyma demonstrates scattered fibroglandular densities. With additional imaging the density in the lateral right breast does not persist. With additional imaging the left breast parenchyma is unchanged from the mammogram performed on 11/14/2007. No suspicious calcification or mass. This digital mammogram was also analyzed by the Computer Aided Detection System (CAD), [employer], Version 8.3. IMPRESSION IMPRESSION: No imaging evidence of malignancy. RECOMMENDATION: Annual screening mammography. The patient received a results and recommendation letter. JUSTO/mehul - uploaded from [employer] - us Jese Willard MD MAMMO ORDERABLES Final Res ult documented in this encounter Visit Diagnoses Diagnosis Other (abnormal) findings on radiological examination of breast Other (abnormal) findings on radiological examination of breast- Primary documented in this encounter Care Teams Radio Program Director Relationship Specialty Start Date End Date Erika Saldivar MD [address] [phone] PCP - General Family Practice 07/04/18 documented as of this encounter
--- OUTSIDE RECORDS SUMMARY | 2025-06-28 14:04 | XMS_ITS | Encounter Summary ---
Author Organization [facility] Address [address] [place] [address] Care Team Providers Care Residential Mortgage Underwriter Name Role Phone Rm Elliott MD Primary Care Provider [phone] Reason for Visit * Reason Comments Question Encounter Details Date Type Department Care Team ([facility] st Contact Info) Description 06/24/2025 Telephone [facility] Medicine [address] [address] Rm Elliott MD [facility] [address] [address] Question Social History Tobacco Use Types Packs/Day Years Used Date Smoking Tobacco: Never Passive Smoke Exposure: Never Smokeless Tobacco: Never Alcohol Use Standard Drinks/Week Comments No 0 (1 standard drink = 0.6 oz pur e alcohol) Comments No Sex and Gender Information Value Date Recorded Sex Assigned at Not on file Legal Sex Female 6:33 AM CASING SOAKER Gender Identity Not on file Sexual Orientation Not on file documented as of this encounter Miscellaneous Notes * Telephone Encounter - Ely Sharp LPN - 06/24/2025 12:55 PM CDT 06/24/2025 12:55 PM Noted. Ely Sharp LPN, 06/24/2025 12:55 PM * Telephone Encounter - Kennedy, Ernestofranklin Bender - 06/24/2025 11:42 AM CDT Copied from [facility] #[id number]. Topic: Reschedule/Cancel Appointment/Late Arrival >> Jun 24, 2025 11:42 AM Ernesto Pradhan wrote: Caller is requesting to reschedule/cancel a hospital follow up. Caller Name: Haim Huynh Callback Number: Telephone Information: Call Notes: states is now in hospital and will call back to reschedule when she can. Is patient requesting to schedule? No documented in this encounter Plan of Treatment Upcoming Encounters Date Type Department Care Team (Late st Contact Info) Description 02/10/2026 10:40 AM CDT Office Visit [address] [phone] Rm Elliott MD [address] [phone] documented as of this encounter Visit Diagnoses Not on filedocumented in this encounter Care Teams Residential Mortgage Underwriter Relationship Specialty Start Date End Date Rm Elliott MD [address] [place] [address] PCP - General Family Practice 01/12/22 documented as of this encounter
--- OUTSIDE RECORDS SUMMARY | 2025-06-28 14:04 | XMS_ITS | Encounter Summary ---
Author Organization [facility] Address [address] [place] [address] Care Team Providers Care Lithography Contact Worker Name Role Phone Erika Saldivar MD Primary Care Provider [phone] Encounter Details Date Type Department Care Team (Latest Contact Info) Description 10/16/2000 Outpatient Historical [facility] Family Medicine- [place] [address] [place] [address] Unspecified menopausal and postmenopausal disorder (Primary Dx); Generalized osteoarthrosis, involving multiple sites; Screening for malignant neoplasm of the rectum Social History Tobacco Use Types Packs/Day Years Used Date Smoking Tobacco: Never Assessed Comments Unknown Sex and Gender Information Value Date Recorded Sex Assigned at Not on file Legal Sex Female 3:11 AM PROOF COIN COLLECTOR Gender Identity Not on file Sexual Orientation Not on file documented as of this encounter Plan of Treatment Not on file documented as of this encounter Visit Diagnoses Diagnosis Unspecified menopausal and postmenopausal disorder- Primary Generalized osteoarthrosis, involving multiple sites Screening for malignant neoplasm of the rectum documented in this encounter Care Teams Lithography Contact Worker Relationship Specialty Start Date End Date Erika Saldivar MD [address] [facility] [address] [place] [address] PCP - General Family Practice 07/04/18 documented as of this encounter
--- OUTSIDE RECORDS SUMMARY | 2025-06-28 14:04 | XMS_ITS | Encounter Summary ---
Author Organization [facility] Address [address] [place] [address] Care Team Providers Care Category Development Manager Name Role Phone Erika Saldivar MD Primary Care Provider Encounter Details Date Type Department Care Team (Latest Contact Info) Description 04/16/2013 Ancillary Orders [facility] [address] [address] Jese Willard MD NO ADDRESS [...] on file Legal Sex Female 3:11 AM CANDLES POURER Gender Identity Not on file Sexual Orientation Not on file Occupation Industry Job Start Date Job End Date Not on file Not on file Not on file Not on file documented as of this encounter Plan of Treatment Not on file documented as of this encounter Visit Diagnoses Diagnosis Other (abnormal) findings on radiological examination of breast- Primary documented in this encounter Care Teams Category Development Manager Relationship Specialty Start Date End Date Erika Saldivar MD [address] [address] PCP - General Family Practice 07/04/18 documented as of this encounter
--- OUTSIDE RECORDS SUMMARY | 2025-06-28 14:04 | XMS_ITS | Encounter Summary ---
Author Organization [facility] Address [address] [place] [address] Care Team Providers Care Hand Spinner Name Role Phone Erika Saldivar MD Primary Care Provider Encounter Details Date Type Department Care Team (Latest Contact Info) Description 04/12/2000 Outpatient Historical [facility] Medicine [place] [address] [address] Abdominal pain, unspecified site (Primary Dx); Pain in joint, lower leg Social History Tobacco Use Types Packs/Day Years Used Date Smoking Tobacco: Never Assessed Comments Unknown Sex and Gender Information Value Date Recorded Sex Assigned at Not on file 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
--- OUTSIDE RECORDS SUMMARY | 2025-06-28 14:04 | XMS_ITS | Encounter Summary ---
Author Organization [facility] Address [address] [place] [address] Care Team Providers Care Senior Marketing Data Analyst Name Role Phone Erika Saldivar MD Primary Care Provider [phone] Encounter Details Date Type Department Care Team (Latest Contact Info) Description 08/19/2004 [facility] 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
--- OUTSIDE RECORDS SUMMARY | 2025-06-28 14:04 | XMS_ITS | Encounter Summary ---
Author Organization [facility] Address [address] [place] [address] Care Team Providers Care Ethnic Origins Teacher Name Role Phone Erika Saldivar MD Primary Care Provider Encounter Details Date Type Department Care Team (Late st Contact Info) Description 08/19/2004 [facility] [address] [place] [address] Tu Christy MD NO ADDRESS ON FILE Social History Tobacco Use Types Packs/Day Years Used Date Smoking Tobacco: Never Assessed Comments Unknown Sex and Gender Information Value Date Recorded Sex Assigned at Not on file Legal Sex Female 3:11 AM CURB HOP Gender Identity Not on file Sexual Orientation Not on file documented as of this encounter Plan of Treatment Not on file documented as of this encounter Visit Diagnoses Not on filedocumented in this encounter Care Teams Ethnic Origins Teacher Relationship Specialty Start Date End Date Erika Saldivar MD [address] [facility] [address] [place] [address] PCP - General Family Practice 07/04/18 documented as of this encounter
--- OUTSIDE RECORDS SUMMARY | 2025-06-28 14:04 | XMS_ITS | Encounter Summary ---
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
--- OUTSIDE RECORDS SUMMARY | 2025-06-28 14:04 | XMS_ITS | Encounter Summary ---
Author Organization [facility] Address [address] [place] [address] Care Team Providers Care Sweatband Decorating Machine Operator Name Role Phone Erika Saldivar MD Primary Care Provider Encounter Details Date Type Department Care Team (Latest Contact Info) Description 08/11/1999 Outpatient Historical [address] [address] Symptomatic menopausal or female climacteric states (Primary Dx); Pain in joint, shoulder region; Other and unspecified hyperlipidemia; Screening for malignant neoplasm of the cervix Social History Tobacco Use Types Packs/Day Years Used Date Smoking Tobacco: Never Assessed Comments Unknown Sex and Gender Information Value Date Recorded Sex Assigned at Not on file 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
--- OUTSIDE RECORDS SUMMARY | 2025-06-28 14:04 | XMS_ITS | Encounter Summary ---
Author Organization [facility] Address [address] [place] [address] Care Team Providers Care Psychologist Private Practice Name Role Phone Erika Saldivar MD Primary Care Provider [phone]- [phone] Encounter Details Date Type Department Care Team (Late st Contact Info) Description 12/20/2007 Outpatient Historical [facility] Medicine [place] [address] [facility] [address] [place] [phone] Jese Willard MD NO ADDRESS ON FILE Social History Tobacco Use Types Packs/Day Years Used Date Smoking Tobacco: Never Assessed Comments Unknown Sex and Gender Information Value Date Recorded Sex Assigned at Not on file 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 SUBJECTIVE: The patient is a 67-year-old white female who returns today accompanied by her .She was last seen on 11/08 at which time we started the patient on hydrochlorothiazide 12.5 mg daily for blood pressure control. She is here today to followup on this as well as to discuss some problems with incontinence. The patient has not been checking blood pressure at home. The patients incontinence pattern occurs sometimes with coughing and sneezing. Also does note an urge component where she feels like she has to go to the bathroom frequently. She has not noted an increase with initiation of her hydrochlorothiazide. Often she will try to mcmillan to the bathroom but will have an accident prior to being able to use the restroom. This sometimes can be of large volume. She denies any dysuria or hematuria. The last UA in October was within normal limits. She is a nonsmoker. Previous history of breast biopsy. Has not had a hysterectomy. Denies vaginal bleeding or spotting.Denies GI complaints. OBJECTIVE: VITAL SIGNS: Weight 231, blood pressure 164/84, pulse 60. GENERAL: In no acute distress. The remainder of exam deferred. ASSESSMENT: 1. Hypertension, not controlled. 2. Mixed urinary incontinence with urge component. PLAN: 1. The patients blood pressure regimen will be improved with switching the patient from hydrochlorothiazide to lisinopril / hydrochlorothiazide 10/12.5 mg daily. 2. The patient wished to be started on a $4.00 drug for her urge incontinence. Will start oxybutynin 5 mg to be taken b.i.d. Cautioned her regarding side effects. 3. Will see her back in 2 months for review. If no improvement could consider surgical consultationif the patient desired. Jese Willard M.D. [facility] Electronically Signed by Jese Willard M.D. 12/27/2007 17:19 , P, [phone] Document #: [id number] cc: E ELECTRICIAN documented in this encounter Plan of Treatment Not on file documented as of this encounter Visit Diagnoses Not on filedocumented in this encounter Care Teams Psychologist Private Practice Relationship Specialty Start Date End Date Erika Saldivar MD [address] [facility] [address] [place] [phone] PCP - General Family Practice 07/04/18 documented as of this encounter
--- OUTSIDE RECORDS SUMMARY | 2025-06-28 14:04 | XMS_ITS | Encounter Summary ---
Author Organization [facility] Address [address] [place] [address] Care Team Providers Care Alum Operator Name Role Phone Erika Saldivar MD Primary Care Provider [phone]- [phone] Reason for Referral * Outpatient Services (Routine) - Closed Specialty Diagnoses / Procedures Referred By Marie camargo Referred To Contact Radiology Diagnoses Other screening mammogram Procedures MAMMO DIGITIZED STUDY Jese Willard MD NO ADDRESS ON FILE [facility] [address] [facility] [address] [place] [address] Phone: tel: fax: Referral ID Status Reason Start Date Expiration Date Visits Re quested Visits Authorized [id number] Closed 04/10/2013 05/11/2014 1 1 Encounter Details Date Type Department Care Team (Late st Contact Info) Description 04/10/[address] [facility] Family Medicine [address] [phone] Jese Willard MD NO ADDRESS ON FILE Breast CA Screening (Primary Dx) Social History Tobacco Use Types Packs/Day Years Used Date Smoking Tobacco: Never Alcohol Use Standard Drinks/Week Comments No 0 (1 standard drink = 0.6 oz pur e alcohol) Comments No Sex and Gender Information Value Date Recorded Sex Assigned at Not on file Legal Sex Female 3:11 AM PERSONAL CONSULTANT Gender Identity Not on file Sexual Orientation Not on file Occupation Industry Job Start Date Job End Date Not on file Not on file Not on file Not on file documented as of this encounter Plan of Treatment Not on file documented as of this encounter Results * MAMMO DIGITIZED STUDY (11/14/2007 11:48 AM PERSONAL CONSULTANT) Narrative Lindsay Sutherland, RT - 04/10/2013 12:49 PM CDT Order information only. Exam was auto-finalized. Procedure Note Lindsay Sutherland, RT - 04/10/2013 Order information only. Exam was auto-finalized. Jese Willard MD DIAGNOSTIC IMAGING ORDERAB LES Final Result documented in this encounter Visit Diagnoses Diagnosis Breast CA Screening- Primary Other screening mammogram Breast CA Screening Other screening mammogram documented in this encounter Care Teams Alum Operator Relationship Specialty Start Date End Date Erika Saldivar MD [address] [phone] PCP - General Family Practice 07/04/18 documented as of this encounter
--- OUTSIDE RECORDS SUMMARY | 2025-06-28 14:04 | XMS_ITS | Encounter Summary ---
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
--- OUTSIDE RECORDS SUMMARY | 2025-06-28 14:04 | XMS_ITS | Encounter Summary ---
Author Organization 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
--- OUTSIDE RECORDS SUMMARY | 2025-06-28 14:04 | XMS_ITS | Encounter Summary ---
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
--- OUTSIDE RECORDS SUMMARY | 2025-06-28 14:04 | XMS_ITS | Encounter Summary ---
Author Organization [facility] Address [address] [place] [address] Care Team Providers Care Health Actuary Name Role Phone Erika Saldivar MD Primary Care Provider Encounter Details Date Type Department Care Team (Latest Contact Info) Description 12/09/2003 Outpatient Historical [facility] Pulmonology-[facility] [address] [place] [phone] ABNORMAL FINDINGS-LUNG FIELD (Primary Dx) Social History Tobacco Use Types Packs/Day Years Used Date Smoking Tobacco: Never Assessed Comments Unknown Sex and Gender Information Value Date Recorded Sex Assigned at Not on file 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
--- OUTSIDE RECORDS SUMMARY | 2025-06-28 14:04 | XMS_ITS | Encounter Summary ---
Author Organization [facility] Address [address] [place] [address] Care Team Providers Care Stitcher Operator Name Role Phone Erika Saldivar MD Primary Care Provider Encounter Details Date Type Department Care Team (Latest Contact Info) Description 12/09/2003 Outpatient Historical [facility] Imaging Services-[facility] [address] [place] [phone] ABNORMAL FINDINGS-LUNG FIELD (Primary Dx) Social History Tobacco Use Types Packs/Day Years Used Date Smoking Tobacco: Never Assessed Comments Unknown Sex and Gender Information Value Date Recorded Sex Assigned at Not on file 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
--- OUTSIDE RECORDS SUMMARY | 2025-06-28 14:05 | XMS_ITS | Encounter Summary ---
Author Organization [facility] Address [address] [place] [address] Care Team Providers Care Cashier Parking Lot Name Role Phone Erika Saldivar MD Primary Care Provider [phone]- [phone] Reason for Referral * Outpatient Services (Routine) - Closed Specialty Diagnoses / Procedures Referred By Marie camargo Referred To Contact Diagnoses Abnormal findings on diagnostic imaging of breast Procedures MAMMO POST US/STEREO GUIDED PROCEDURE LT Ilan Rushing PA [facility] Pre-Registration [place] CALL TO MAKE APPOINTMENT ONLY [address] [place] [address] Phone: tel: fax: Referral ID Status Reason Start Date Expiration Date Visits Re quested Visits Authorized [id number] Closed 07/20/2018 08/20/2019 1 1 * Outpatient Services (Routine) - Closed Specialty Diagnoses / Procedures Referred By Contac t Referred To Contact Diagnoses Abnormal findings on diagnostic imaging of breast Procedures MAMMO BREAST US BIOPSY LEFT Ilan Rushing PA [facility] Pre-Registration [place] CALL TO MAKE APPOINTMENT ONLY [address] [place] [address] Phone: tel: fax: Referral ID Status Reason Start Date Expiration Date Visits Re quested Visits Authorized [id number] Closed 07/20/2018 08/20/2019 1 1 Encounter Details Date Type Department Care Team (Late st Contact Info) Description 07/20/2018 Ancillary Orders [facility] [address] [place] [address] Ilan Rushing PA NO ADDRESS ON FILE Abnormal findings on diagnostic imaging of breast Social History Tobacco Use Types Packs/Day Years Used Date Smoking Tobacco: Never Smokeless Tobacco: Never Alcohol Use Standard Drinks/Week Comments No 0 (1 standard drink = 0.6 oz pur e alcohol) Comments No Sex and Gender Information Value Date Recorded Sex Assigned at Not on file Legal Sex Female 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 Gender Identity Not on file Sexual Orientation Not on file Occupation Industry Job Start Date Job End Date Not on file Not on file Not on file Not on file documented as of this encounter Plan of Treatment Not on file documented as of this encounter Results * MAMMO POST US/STEREO GUIDED PROCEDURE LT (07/31/2018 8:47 AM CDT) Anatomical Region Laterality Modality Breast Left Mammography 07/31/2018 8:47 AM CDT Narrative 08/02/2018 7:50 PM CDT LEFT BREAST ULTRASOUND-GUIDED NEEDLE CORE BIOPSY INDICATION: 77-year-old female presents for ultrasound-guided biopsy of a mass in the left breast at 11:00, 6 cm from the nipple. Informed consent was obtained from the patient. She was placed on the ultrasound table, and the left breast was prepped and draped in the usual sterile fashion. The skin and subcutaneous tissue was anesthetized with 10 cc of lidocaine. A small skin flori was made with a scalpel. Utilizing a 14-gauge spring-loaded core biopsy needle, 5 needle core specimens were obtained. Pre- and post-fire imaging showed that the needle was in accurate position. The needle was removed, and hemostasis was achieved. A coil marker clip was placed. Post-clip mammogram views show the clip in appropriate position. Pressure dressing and ice pack were applied. There was no immediate complication. Verbal and written post-procedure instructions were given to the patient, and she was released in good condition. The core needle specimens were sent to surgical pathology. CONCLUSION: Successful ultrasound-guided needle core biopsy of the mass in the left breast at 11:00, 6 cm from the nipple as described above. RADIOLOGY/PATHOLOGY ADDENDUM: The pathology result of fibrocystic changes including portions of cyst with apocrine metaplasia, stromal fibrosis, and focal adenosis is BENIGN. This is CONCORDANT with imaging. Recommendation: Follow-up left diagnostic mammogram in 6 months. [id number] Procedure Note Sheba James, DO - 08/02/2018 LEFT BREAST ULTRASOUND-GUIDED NEEDLE CORE BIOPSY INDICATION: 77-year-old female presents for ultrasound-guided biopsy of a mass in the left breast at 11:00, 6 cm from the nipple. Informed consent was obtained from the patient. She was placed on the ultrasound table, and the left breast was prepped and draped in the usual sterile fashion. The skin and subcutaneous tissue was anesthetized with 10 cc of lidocaine. A small skin flori was made with a scalpel. Utilizing a 14-gauge spring-loaded core biopsy needle, 5 needle core specimens were obtained. Pre- and post-fire imaging showed that the needle was in accurate position. The needle was removed, and hemostasis was achieved. A coil marker clip was placed. Post-clip mammogram views show the clip in appropriate position. Pressure dressing and ice pack were applied. There was no immediate complication. Verbal and written post-procedure instructions were given to the patient, and she was released in good condition. The core needle specimens were sent to surgical pathology. CONCLUSION: Successful ultrasound-guided needle core biopsy of the mass in the left breast at 11:00, 6 cm from the nipple as described above. RADIOLOGY/PATHOLOGY ADDENDUM: The pathology result of fibrocystic changes including portions of cyst with apocrine metaplasia, stromal fibrosis, and focal adenosis is BENIGN. This is CONCORDANT with imaging. Recommendation: Follow-up left diagnostic mammogram in 6 months. [id number] us Ilan MONTANO MAMMO ORDERABLES Final Result * MAMMO BREAST US BIOPSY LEFT (07/31/2018 8:35 AM CDT) Anatomical Region Laterality Modality Breast Left Ultrasound Tissue SPECIMEN FROM BREAST / Unknown 07/31/2018 8:35 AM CDT Narrative 08/02/2018 7:50 PM CDT LEFT BREAST ULTRASOUND-GUIDED NEEDLE CORE BIOPSY INDICATION: 77-year-old female presents for ultrasound-guided biopsy of a mass in the left breast at 11:00, 6 cm from the nipple. Informed consent was obtained from the patient. She was placed on the ultrasound table, and the left breast was prepped and draped in the usual sterile fashion. The skin and subcutaneous tissue was anesthetized with 10 cc of lidocaine. A small skin flori was made with a scalpel. Utilizing a 14-gauge spring-loaded core biopsy needle, 5 needle core specimens were obtained. Pre- and post-fire imaging showed that the needle was in accurate position. The needle was removed, and hemostasis was achieved. A coil marker clip was placed. Post-clip mammogram views show the clip in appropriate position. Pressure dressing and ice pack were applied. There was no immediate complication. Verbal and written post-procedure instructions were given to the patient, and she was released in good condition. The core needle specimens were sent to surgical pathology. CONCLUSION: Successful ultrasound-guided needle core biopsy of the mass in the left breast at 11:00, 6 cm from the nipple as described above. RADIOLOGY/PATHOLOGY ADDENDUM: The pathology result of fibrocystic changes including portions of cyst with apocrine metaplasia, stromal fibrosis, and focal adenosis is BENIGN. This is CONCORDANT with imaging. Recommendation: Follow-up left diagnostic mammogram in 6 months. [id number] Procedure Note Sheba James, - 08/02/2018 LEFT BREAST ULTRASOUND-GUIDED NEEDLE CORE BIOPSY INDICATION: 77-year-old female presents for ultrasound-guided biopsy of a mass in the left breast at 11:00, 6 cm from the nipple. Informed consent was obtained from the patient. She was placed on the ultrasound table, and the left breast was prepped and draped in the usual sterile fashion. The skin and subcutaneous tissue was anesthetized with 10 cc of lidocaine. A small skin flori was made with a scalpel. Utilizing a 14-gauge spring-loaded core biopsy needle, 5 needle core specimens were obtained. Pre- and post-fire imaging showed that the needle was in accurate position. The needle was removed, and hemostasis was achieved. A coil marker clip was placed. Post-clip mammogram views show the clip in appropriate position. Pressure dressing and ice pack were applied. There was no immediate complication. Verbal and written post-procedure instructions were given to the patient, and she was released in good condition. The core needle specimens were sent to surgical pathology. CONCLUSION: Successful ultrasound-guided needle core biopsy of the mass in the left breast at 11:00, 6 cm from the nipple as described above. RADIOLOGY/PATHOLOGY ADDENDUM: The pathology result of fibrocystic changes including portions of cyst with apocrine metaplasia, stromal fibrosis, and focal adenosis is BENIGN. This is CONCORDANT with imaging. Recommendation: Follow-up left diagnostic mammogram in 6 months. [id number] Ilan MONTANO MAMMO ORDERABLES Final Result documented in this encounter Visit Diagnoses Diagnosis Abnormal findings on diagnostic imaging of breast Other (abnormal) findings on radiological examination of breast Abnormal findings on diagnostic imaging of breast Other (abnormal) findings on radiological examination of breast Abnormal findings on diagnostic imaging of breast Other (abnormal) findings on radiological examination of breast documented in this encounter Additional Health Concerns Assessment Noted Time PHQ-9 Depression Total Score: 1 06/21/20 18 8:00 AM CDT documented as of this encounter Care Teams Cashier Parking Lot Relationship Specialty Start Date End Date Erika Saldivar MD [address] [phone] PCP - General Family Practice 07/04/18 documented as of this encounter
--- OUTSIDE RECORDS SUMMARY | 2025-06-28 14:05 | XMS_ITS | Encounter Summary ---
Author Organization [facility] Address [address] [place] [address] Care Team Providers Care Precipitator Name Role Phone Erika Saldivar MD Primary Care Provider Encounter Details Date Type Department Care Team (Latest Contact Info) Description 11/15/2002 Outpatient Historical [facility] Medicine[address] [address] Jasiel Banks MD NO ADDRESS ON FILE OTHER LUNG DISEASE NEC (Primary Dx) Social History Tobacco Use Types Packs/Day Years Used Date Smoking Tobacco: Never Assessed Comments Unknown Sex and Gender Information Value Date Recorded Sex Assigned at Not on file Legal Sex Female 3:11 AM BENEFITS OFFICER Gender Identity Not on file Sexual Orientation Not on file documented as of this encounter Plan of Treatment Not on file documented as of this encounter Visit Diagnoses Diagnosis Other diseases of lung, not elsewhere classified- Primary documented in this encounter Care Teams Precipitator Relationship Specialty Start Date End Date Erika Saldivar MD [address] [facility] [address] [place] [address] PCP - General Family Practice 07/04/18 documented as of this encounter
--- OUTSIDE RECORDS SUMMARY | 2025-06-28 14:05 | XMS_ITS | Encounter Summary ---
Author Organization [facility] Address [address] [place] [address] Care Team Providers Care Agronomy Technician Name Role Phone Erika Saldivar MD Primary Care Provider Encounter Details Date Type Department Care Team (Latest Contact Info) Description 03/18/[address] 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
--- OUTSIDE RECORDS SUMMARY | 2025-06-28 14:05 | XMS_ITS | Encounter Summary ---
Author Organization [facility] Address [address] [place] [address] Care Team Providers Care Conche Operator Name Role Phone Erika Saldivar MD Primary Care Provider Encounter Details Date Type Department Care Team (Latest Contact Info) Description 09/25/2002 Outpatient Historical [facility] Medicine [address] [phone] MASTODYNIA (Primary Dx); ACUTE BRONCHITIS; COUGH Social History Tobacco Use Types Packs/Day Years Used Date Smoking Tobacco: Never Assessed Comments Unknown Sex and Gender Information Value Date Recorded Sex Assigned at Not on file Legal Sex Female 3:11 AM RECORDING ARTIST Gender Identity Not on file Sexual Orientation Not on file documented as of this encounter Plan of Treatment Not on file documented as of this encounter Visit Diagnoses Diagnosis Mastodynia- Primary Acute bronchitis Cough documented in this encounter Care Teams Conche Operator Relationship Specialty Start Date End Date Erika Saldivar MD [address] [phone] PCP - General Family Practice 07/04/18 documented as of this encounter
--- OUTSIDE RECORDS SUMMARY | 2025-06-28 14:05 | XMS_ITS | Encounter Summary ---
Author Organization [facility] Address [address] [place] [address] Care Team Providers Care Monument Installer Name Role Phone Erika Saldivar MD Primary Care Provider Encounter Details Date Type Department Care Team (Latest Contact Info) Description 02/26/2003 Outpatient Historical [facility] [address] [phone] ALLERGIC RHINITIS NOS (Primary Dx); Gynecologic examination; SCREENING MAL NEOP-RECTUM Social History Tobacco Use Types Packs/Day Years Used Date Smoking Tobacco: Never Assessed Comments Unknown Sex and Gender Information Value Date Recorded Sex Assigned at Not on file Legal Sex Female 3:11 AM VIDEO OPERATOR Gender Identity Not on file Sexual Orientation Not on file documented as of this encounter Plan of Treatment Not on file documented as of this encounter Visit Diagnoses Diagnosis Allergic rhinitis, cause unspecified- Primary Gynecologic examination Gynecological examination Screening for malignant neoplasm of the rectum documented in this encounter Care Teams Monument Installer Relationship Specialty Start Date End Date Erika Saldivar MD [address] [phone] PCP - General Family Practice 07/04/18 documented as of this encounter
--- OUTSIDE RECORDS SUMMARY | 2025-06-28 14:05 | XMS_ITS | Encounter Summary ---
Author Organization [facility] Address [address] [place] [address] Care Team Providers Care Filler Machine Operator Name Role Phone Erika Saldivar MD Primary Care Provider [phone]- [phone] Encounter Details Date Type Department Care Team (Late st Contact Info) Description 03/18/2003 Outpatient Historical [facility] [address] [address] Elvis Chatman DO NO ADDRESS ON FILE Social History Tobacco Use Types Packs/Day Years Used Date Smoking Tobacco: Never Assessed Comments Unknown Sex and Gender Information Value Date Recorded Sex Assigned at Not on file Legal Sex Female 3:11 AM 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
--- OUTSIDE RECORDS SUMMARY | 2025-06-28 14:05 | XMS_ITS | Encounter Summary ---
Author Organization [facility] Address [address] [place] [address] Care Team Providers Care Credentialer Name Role Phone Erika Saldivar MD Primary Care Provider [phone]- [phone] Encounter Details Date Type Department Care Team (Late st Contact Info) Description 02/26/2003 Outpatient Historical [address] [phone] Elvis Chatman DO NO ADDRESS ON FILE Social History Tobacco Use Types Packs/Day Years Used Date Smoking Tobacco: Never Assessed Comments Unknown Sex and Gender Information Value Date Recorded Sex Assigned at Not on file Legal Sex Female 3:11 AM CLINICAL SERVICES DIRECTOR Gender Identity Not on file Sexual Orientation Not on file documented as of this encounter Plan of Treatment Not on file documented as of this encounter Visit Diagnoses Not on filedocumented in this encounter Care Teams Credentialer Relationship Specialty Start Date End Date Erika Saldivar MD [address] [phone] PCP - General Family Practice 07/04/18 documented as of this encounter
--- OUTSIDE RECORDS SUMMARY | 2025-06-28 14:05 | XMS_ITS | Encounter Summary ---
Author Organization [facility] Address [address] [place] [address] Care Team Providers Care Dining Room Coordinator Name Role Phone Erika Saldivar MD Primary Care Provider [phone] Encounter Details Date Type Department Care Team (Latest Contact Info) Description 02/20/[address] [facility] [address] [place] [phone] ABNORMAL FINDINGS-LUNG FIELD (Primary Dx) Social History Tobacco Use Types Packs/Day Years Used Date Smoking Tobacco: Never Assessed Comments Unknown Sex and Gender Information Value Date Recorded Sex Assigned at Not on file Legal Sex Female 3:11 AM NCA CERTIFIED CONCIERGE Gender Identity Not on file Sexual Orientation Not on file documented as of this encounter Plan of Treatment Not on file documented as of this encounter Visit Diagnoses Diagnosis Nonspecific (abnormal) findings on radiological and other examination of lung field- Primary documented in this encounter Care Teams Dining Room Coordinator Relationship Specialty Start Date End Date Erika Saldivar MD [address] [facility] [address] [place] [phone] PCP - General Family Practice 07/04/18 documented as of this encounter
--- OUTSIDE RECORDS SUMMARY | 2025-06-28 14:05 | XMS_ITS | Encounter Summary ---
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
--- OUTSIDE RECORDS SUMMARY | 2025-06-28 14:05 | XMS_ITS | Encounter Summary ---
Author Organization [facility] Address [address] [place] [address] Care Team Providers Care Multifocal Lens Inspector Name Role Phone Erika Saldivar MD Primary Care Provider [phone]- [phone] Encounter Details Date Type Department Care Team (Late st Contact Info) Description 08/27/2015 Nurse Triage Report [id number] ABSTRACTION Ilene Rea, RN Social History Tobacco Use Types Packs/Day Years Used Date Smoking Tobacco: Never Smokeless Tobacco: Never Alcohol Use Standard Drinks/Week Comments No 0 (1 standard drink = 0.6 oz pur e alcohol) Comments No Sex and Gender Information Value Date Recorded Sex Assigned at Not on file Legal Sex Female 3:11 AM SENIOR UNDERWRITING ASSISTANT Gender Identity Not on file Sexual Orientation Not on file Occupation Industry Job Start Date Job End Date Not on file Not on file Not on file Not on file documented as of this encounter Progress Notes * Ilene Rea RN - 08/27/2015 8:13 AM CDT CHART DOCUMENTATION ONLY Call Type: Triage Call Presenting Problem: I am very dizzy. Report feedback to Dr Johnson Associated Symptoms: dizziness, has to hold on to something to walk Onset: 30 minutes Location: neuro Pain Assessment: 1 - 10 with 10 being the most severe pain denies Treatment so far for current presenting problem: gabbapentin, vitamin History (Clinical Problems): (HTN, heart murmur) History (Oncology/Hematology Diagnosis): NA Treatment for oncology or hematology diagnosis: NA Date of last oncology or hematology specific treatment: NA OB: Are you having contractions 5 minutes apart for 1 hour? NA OB: Are you leaking any fluid vaginally? NA OB: Are you having any vaginal bleeding? (Indicate color and amount) NA OB: Is your baby moving normally? NA Medications: [facility] list up to date Medications and start of each - oncology related: NA Medication reactions: NKDA <<<<<<<< TRIAGE NOTE >>>>>>>> Triage Note: Spa Consultant Ilene Rea added this note on Aug 27 2015 8:12AM: Pt states she will be at the office at 8:30 when they open. Advised if difficulty transporting or worsening s/s to call 911. Verbalizes understanding. Pt did not have access to blood pressure cuff. Advised to not take her BP medications until she has order received from MD. Verbalizes understanding. <<<<<<<< TRIAGE/OUTCOME >>>>>>>> Guideline Title: Dizziness or Vertigo Recommended Disposition: See Provider within 24 hours Original Inclination: Call Provider/See in 24 Intended Action: Call Provider Immediately Physician Contacted: No Previously evaluated and worsening symptoms interfering with ability to carry out activities of daily living (ADLs) ? YES documented in this encounter Plan of Treatment Not on file documented as of this encounter Visit Diagnoses Not on filedocumented in this encounter Care Teams Multifocal Lens Inspector Relationship Specialty Start Date End Date Erika Saldivar MD [address] [facility] [address] [place] [phone] PCP - General Family Practice 07/04/18 documented as of this encounter
--- OUTSIDE RECORDS SUMMARY | 2025-06-28 14:05 | XMS_ITS | Encounter Summary ---
Author Organization [facility] Address [address] [place] [address] Care Team Providers Care Dental Amalgam Processor Name Role Phone Erika Saldivar MD Primary Care Provider [phone] Reason for Referral * Outpatient Services (Routine) - Closed Specialty Diagnoses / Procedures Referred By Marie camargo Referred To Contact Diagnoses Inconclusive mammogram Procedures MAMMO BREAST US LEFT LTD Ilan Rushing PA [facility] Pre-Registration [place] CALL TO MAKE APPOINTMENT ONLY [address] [place] [address] Phone: tel: fax: Referral ID Status Reason Start Date Expiration Date Visits Re quested Visits Authorized [id number] Closed 07/02/2018 08/02/2019 1 1 Encounter Details Date Type Department Care Team (Latest Contact Info) Description 07/02/2018 Ancillary Orders [facility] [address] [facility] [address] [place] [address] Ilan Rushing PA NO ADDRESS ON FILE Inconclusive mammogram Social History Tobacco Use Types Packs/Day Years Used Date Smoking Tobacco: Never Smokeless Tobacco: Never Alcohol Use Standard Drinks/Week Comments No 0 (1 standard drink = 0.6 oz pur e alcohol) Comments No Sex and Gender Information Value Date Recorded Sex Assigned at Not on file 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 BI-RADS: 4 Recommendation: Tissue diagnosis Recommendation Laterality: Left [id number] Narrative 07/20/2018 4:33 PM CDT EXAM: MAMMO BREAST US LEFT LTD, 07/20/2018 1:29 PM CLINICAL INDICATIONS: Call back from screening for new left breast mass. COMPARISON: 06/28/2018, 01/10/2017, 04/10/2013, 11/14/2007. TECHNIQUE: Multiple real-time nino-scale images of the left breast in the 11 o'clock axis are performed. Color Doppler was used to assess vascular flow. FINDINGS: An oval hypoechoic mass with predominantly circumscribed margins is present within the 11:00 axis of the left breast, 6 cm from the nipple, measuring 1.1 x 0.9 x 0.5 cm. There is no internal vascularity and this appears to demonstrate posterior acoustic enhancement. Evaluation of the left axilla demonstrates normal lymph nodes. No abnormal left axillary lymph nodes visualized. Ilan MONTANO MAMMO ORDERABLES Final Result documented in this encounter Visit Diagnoses Diagnosis Inconclusive mammogram Inconclusive mammogram documented in this encounter Additional Health Concerns Assessment Noted Time PHQ-9 Depression Total Score: 1 06/21/20 18 8:00 AM CDT documented as of this encounter Care Teams Dental Amalgam Processor Relationship Specialty Start Date End Date Erika Saldivar MD [address] [id number] PCP - General Family Practice 07/04/18 documented as of this encounter
--- OUTSIDE RECORDS SUMMARY | 2025-06-28 14:05 | XMS_ITS | Encounter Summary ---
Author Organization [facility] Address [address] [place] [address] Care Team Providers Care It Program Auditor Name Role Phone Erika Saldivar MD Primary Care Provider [phone] Encounter Details Date Type Department Care Team (Latest Contact Info) Description 07/26/1999 Outpatient Historical [facility] [address] [place] [address] Allergic rhinitis, cause unspecified (Primary Dx); Unspecified menopausal and postmenopausal disorder; Brachial plexus lesions; Nonallopathic lesion of rib cage, not elsewhere classified Social History Tobacco Use Types Packs/Day Years Used Date Smoking Tobacco: Never Assessed Comments Unknown Sex and Gender Information Value Date Recorded Sex Assigned at Not on file 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 Gender Identity Not on file Sexual Orientation Not on file documented as of this encounter Plan of Treatment Not on file documented as of this encounter Visit Diagnoses Diagnosis Allergic rhinitis, cause unspecified- Primary Unspecified menopausal and postmenopausal disorder Brachial plexus lesions Nonallopathic lesion of rib cage, not elsewhere classified documented in this encounter Care Teams It Program Auditor Relationship Specialty Start Date End Date Erika Saldivar MD [address] [facility] [address] [place] [phone] PCP - General Family Practice 07/04/18 documented as of this encounter
--- OUTSIDE RECORDS SUMMARY | 2025-06-28 14:05 | XMS_ITS | Encounter Summary ---
Author Organization [facility] Address [address] [place] [address] Care Team Providers Care Calender Wind Up Helper Name Role Phone Erika Saldivar MD Primary Care Provider [phone] Encounter Details Date Type Department Care Team (Latest Contact Info) Description 02/20/2003 Outpatient Historical [facility] Imaging Services-[facility] [place] [address] [place] [id number] OTHER LUNG DISEASE NEC (Primary Dx) Social History Tobacco Use Types Packs/Day Years Used Date Smoking Tobacco: Never Assessed Comments Unknown Sex and Gender Information Value Date Recorded Sex Assigned at Not on file 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
--- OUTSIDE RECORDS SUMMARY | 2025-06-28 14:05 | XMS_ITS | Encounter Summary ---
Author Organization [facility] Address [address] [place] [address] Care Team Providers Care Machine Attendant Name Role Phone Erika Saldivar MD Primary Care Provider Encounter Details Date Type Department Care Team (Latest Contact Info) Description 03/20/2002 Outpatient Historical [facility] [address] [address] ENLARGEMENT LYMPH NODES (Primary Dx); Gynecologic examination; AFTERCARE DETENTION USE MEDICATN; SCREENING MAL NEOP-RECTUM Social History Tobacco Use Types Packs/Day Years Used Date Smoking Tobacco: Never Assessed Comments Unknown Sex and Gender Information Value Date Recorded Sex Assigned at Not on file 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
--- OUTSIDE RECORDS SUMMARY | 2025-06-28 14:05 | XMS_ITS | Encounter Summary ---
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
--- OUTSIDE RECORDS SUMMARY | 2025-06-28 14:05 | XMS_ITS | Encounter Summary ---
Author Organization [facility] Address [address] [place] [address] Care Team Providers Care Surgical Elastic Knitter Hand Frame Name Role Phone Erika Saldivar MD Primary Care Provider Encounter Details Date Type Department Care Team (Latest Contact Info) Description 10/29/2002 Outpatient Historical [facility] Pulmonology-[facility] [place] [address] [place] [phone] ABNORMAL FINDINGS-LUNG FIELD (Primary Dx) Social History Tobacco Use Types Packs/Day Years Used Date Smoking Tobacco: Never Assessed Comments Unknown Sex and Gender Information Value Date Recorded Sex Assigned at Not on file Legal Sex Female 3:11 AM NET COORDINATOR Gender Identity Not on file Sexual Orientation Not on file documented as of this encounter Plan of Treatment Not on file documented as of this encounter Visit Diagnoses Diagnosis Nonspecific (abnormal) findings on radiological and other examination of lung field- Primary documented in this encounter Care Teams Surgical Elastic Knitter Hand Frame Relationship Specialty Start Date End Date Erika Saldivar MD [address] [facility] [address] [place] [phone] PCP - General Family Practice 07/04/18 documented as of this encounter
--- OUTSIDE RECORDS SUMMARY | 2025-06-28 14:05 | XMS_ITS | Encounter Summary ---
Author Organization [facility] Address [address] [place] [address] Care Team Providers Care Inspector Paper Products Name Role Phone Erika Saldivar MD Primary Care Provider Encounter Details Date Type Department Care Team (Latest Contact Info) Description 07/28/1999 Outpatient Historical [facility] [address] [address] Brachial plexus lesions (Primary Dx); Nonallopathic lesion of thoracic region, not elsewhere classified; Nonallopathic lesion of rib cage, not elsewhere classified Social History Tobacco Use Types Packs/Day Years Used Date Smoking Tobacco: Never Assessed Comments Unknown Sex and Gender Information Value Date Recorded Sex Assigned at Not on file 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 Sex Female 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
--- NOTE | 2025-06-28 14:23 | W.ED.GENADLT ---
HPI - General Adult General: Chief complaint: General Medical Stated complaint: lt wrist pain Time Seen by Provider: 06/28/25 14:05 History of Present Illness: Chief complaint is generalized weakness, fatigue, left wrist pain, other areas of pain and swelling. History from the patient is different than that provided by the daughter. Daughter provides much of the history. Related Data Allergies Allergy/AdvReac Type Severity Reaction Status Date / Time No Known Allergies Allergy Verified 06/28/25 14:17 Physical Exam Narrative: EXAM NARRATIVE: Patient is alert and oriented. She appears anxious. No signs of trauma to her head. Pupils are equal reactive. Full range ocular motion. Normal conjunctiva. Neck is supple and she moves her neck freely. No focal tenderness. No swelling. Heart regular rhythm. Lung sounds are mildly diminished bilaterally but no increased work of breathing or prolonged expiratory phase. She is talking in full sentences. Abdomen soft with mild lower abdominal tenderness. No guarding or rebound. Patient has some erythema over her left hand and some over the wrist. She has pain with any movement. She can move her fingers. She has swelling. She also has swelling of both ankles and feet worse on the left. No focal tenderness or erythema. She moves her elbows and shoulders well. She has no drift in her arms and no facial droop. Speech is clear. No tenderness over her back and she moves her back freely. Intact sensation and pulses. She shows ability to reason. Speech is clear. No ataxia. Procedures Joint Aspiration/Injection Joint Asp./Inject. 1: Time Out Performed: Yes Side of body: left Joint Aspirated: wrist/hand (left) Ultrasound Guidance: No Skin Prep: Chlorhexidine Local Anesthetic: lidocaine 1% Amount of anesthesia used (mL): 3 Needle Size Used: Other (21) Fluid Obtained: viscous Total fluid obtained (mL): 1 (less than ) Amount of medication injected (mL): 0 Patient Tolerated Procedure: well Complications: none Additional Comments: Using dorsal approach fluid obtained however very small amount less than 1 mL. Course Vital Signs: Vital signs: Vital Signs Temperature 98.1 F 06/28/25 14:10 Pulse Rate 76 06/28/25 21:00 Respiratory Rate 18 06/28/25 21:00 Blood Pressure 128/68 06/28/25 21:00 Pulse Oximetry 93 06/28/25 21:00 Oxygen Delivery Me thod Room Air 06/28/25 21:00 Oxygen Flow Rate 2 06/28/25 18:30 MDM - General Adult Medical Decision Making Patient presents to the emergency department along with her daughter. The daughter states that 3 weeks ago the patient started complaining of neck pain. She started having a lot of pain with any movement of her neck. She was seen and given a steroid shot. Her neck seem to improve. She was also given muscle relaxants and Percocet. She has been sleeping a lot falling asleep for most of the day and very fatigued. The daughter gives this history although the patient denies it. No fall or injury. No headache. No chest pain. She has been having some shortness of breath which is chronic but recently has gotten worse. She states she has had some mild lower abdominal discomfort. She thinks she is also had some constipation. No vomiting. No black bloody stools. No dysuria or loss of bowel or bladder control. No focal numbness weakness or tingling in her arms or legs although she states has been a little weak all over. She states then after her neck started hurting that got better and then she started having pain and swelling in her right leg. She states that she was seen in the emergency department. She states that they could not find a cause. She states now it seems to moved to her left ankle and leg. Denies history of PE or DVT. Will get ultrasound to evaluate for DVT if she does have swelling in both legs and some pitting edema especially in the feet. She moves her ankles freely however. She states she does have some pain in her ankles when she is walking. Patient denies any fall or trauma. Patient today complains of right now she has got worse pain primarily in the left wrist. Patient has erythema over the left wrist and thumb. She states it started out in the base of the thumb at the MCP and that was red and then the redness and swelling moved into the wrist and the hand. The patient now has what seems like a palpable effusion over the wrist primarily towards the radial aspect and at the base of the thumb. She has pain with any movement. The swelling and erythema extend over the dorsum of the hand as well. It seems more on the hand than the wrist itself. Neurovascular intact distally. No focal bony tenderness. I ordered x-ray of her wrist and a chest x-ray. I ordered D-dimer EKG CBC CMP CRP sed rate. Differential broad including rheumatoid arthritis, polymyalgia rheumatica, gout, other inflammatory condition. Patient also found to have oxygen requirement. She is 87% on room air. She denies being on oxygen at home. Patient's white blood cell count was elevated at 15. She was on a course of steroids which may have contributed although my understanding is these ended more than a week ago so less likely. Patient CRP and sed rate are markedly elevated. Her multiple areas of joint involvement that have been migratory and suggestive of acute inflammatory process more likely than infectious. With the appearance of her wrist however I advised attempt at arthrocentesis although it may be more in the hand than the wrist. She agreed and I advised her risk and alternatives. I advised risk of developing septic arthritis or osteomyelitis or other infectious complication, bleeding, pain, other neurovascular injury, failed aspiration, and alternatives including empiric treatment with antibiotics, anti-inflammatories, among others. I advised that she is less likely to have infectious source then inflammatory by her history however she doubly has a red hot hand and swollen. She has a palpable effusion I do not think it is cellulitis. I advised her risk of introducing infection to the joint if there is overlying infection. Will approach from the ulnar side where there is no overlying erythema. I was only able to obtain a very small amount of synovial fluid. I do not think she has significant wrist effusion. I suspect the inflammation and swelling is more over the hand. On exam and history I feel I am unlikely to successfully obtain significant fluid. Synovial fluid sent for culture. D-dimer returned elevated so CT angio of the chest was ordered in addition to CT abdomen/pelvis with her lower abdominal discomfort and tenderness. The symptoms were vague and less likely to be acute abdominal process. Patient creatinine was not elevated. Only no synovial fluid was obtained to send for culture. Will empirically cover with antibiotics with elevated white count and wrist erythema. I ordered blood cultures. I ordered Zosyn 4.[address] chest abdomen pelvis did not show definite abnormality. There was some asymmetric thickening of the gallbladder and distended gallbladder but no stones. I reexamined patient's abdomen she has no right upper quadrant tenderness and negative Vyas's. Liver enzymes are not elevated. Patient states she is just had no appetite but denies any postprandial pain. She states she did have some pain earlier in the week off and on but it was more lower abdominal cramping. She does have multiple fluid-filled loops of small bowel. There is no PE or evident cause of her hypoxia. When I turn her oxygen off she drops straight to 87% on room air. She states she has noticed that she cannot walk very far distances without getting out of breath. Her delta troponin was not significantly elevated. I consulted with Dr. Pelaez who is going to evaluate the patient as well. pt will be admitted for further evaluation and treatment of hypoxia and further evaluation for infectious versus inflammatory causes of her symptoms. Lab Data 06/28/25 15:24 06/28/25 15:24 Radiology Impressions Chest X-Ray 06/28/25 14:50 IMPRESSION: No acute findings. Wrist X-Ray 06/28/25 14:50 IMPRESSION: 1. No acute displaced fracture or dislocation. 2. Diffuse osseous demineralization with degenerative change and soft tissue edema. Venous Duplex 06/28/25 14:52 IMPRESSION: Negative for deep venous thrombosis within bilateral lower extremities. Chest/Abdomen/Pelvis CT 06/28/25 17:31 IMPRESSION: Negative for pulmonary emboli. No focal consolidation. IMPRESSION: 1. Multiple fluid-filled nondilated loops of small bowel, nonspecific findings but may be seen with enteritis of infectious/inflammatory etiology. 2. Colonic diverticulosis without CT evidence of acute diverticulitis. 3. Distended gallbladder without gallstones with asymmetric wall thickening. If there is concern for gallbladder pathology correlation with liver enzymes and/or evaluation with dedicated ultrasound is recommended. 4. Small amount of free pelvic fluid. Laboratory Results WBC 15.26 10^3/uL (3.29-11.43) H 06/28/25 15:24 RBC 4.60 10^6/uL (3.85-5.65) 06/28/25 15:24 Hgb 13.20 g/dL (11.27-16.99) 06/28/25 15: Hct 40.4 % (36-47) 06/28/25 15:24 MCV 87.8 fl (85-98) 06/28/25 15: MCH 28.7 pg (27-33) 06/28/25 15: MCHC 32.7 g/dL (30-55) 06/28/25 15:24 RDW 13.3 % (12.1-15.1) 06/28/25 15:24 Plt Count 353 10^3/cmm (157-399) 06/28/25 15:24 MPV 10.6 fL (7.4-10.4) H 06/28/25 15:24 Neut % (Auto) 73.5 % 06/28/25 15:24 Lymph % (Auto) 14.6 % 06/28/25 15:24 Nash % (Auto) 11.2 % 06/28/25 15:24 Eos % (Auto) 0.0 % 06/28/25 15:24 Baso % (Auto) 0.2 % 06/28/25 15:24 Neut # (Auto) 11.21 10^3/uL (1.8-7.7) H 06/28/25 15:24 Lymph # (Auto) 2.2 10^3/uL (0.8-4.8) 06/28/25 15:24 Nash # (Auto) 1.7 10^3/uL (0.2-0.9) H 06/28/25 15:24 Eos # (Auto) 0.0 10^3/uL (0.0-0.8) 06/28/25 15:24 Baso # (Auto) 0.0 10^3/uL (0.0-0.1) 06/28/25 15:24 Nucleated RBC % (auto) 0 % 06/28/25 15:24 Nucleated RBCs # 0.0 /100WBC 06/28/25 15:24 ESR 46 mm/hr (0-15) H 06/28/25 15:24 D-Dimer 1.70 ug/mLFEU (0-0.59) H 06/28/25 15:24 Sodium 136 mmol/L (136-145) 06/28/25 15:24 Potassium 3.7 mmol/L (3.5-5.1) 06/28/25 15:24 Chloride 97 mmol/L (98-107) L 06/28/25 15:24 Carbon Dioxide 23 mmol/L (22-29) 06/28/25 15:24 Anion Gap 19.7 (5-19) H 06/28/25 15:24 BUN 14 mg/dL (8-23) 06/28/25 15:24 Creatinine 0.8 mg/dL (0.5-0.9) 06/28/25 15:24 GFR Calculation Not Reportable 06/28/25 15:24 Glucose 106 mg/dL (65-115) 06/28/25 15:24 Calculated Osmolality 283 mOsm/kg (285-295) L 06/28/25 15:24 Calcium 9.5 mg/dL (8.5-10.5) 06/28/25 15:24 Total Bilirubin 0.7 mg/dL (0.15-1.2) 06/28/25 15:24 AST 15 U/L (0-32) 06/28/25 15:24 ALT 8 U/L (0-33) 06/28/25 15:24 Alkaline Phosphatase 102 U/L (35-105) 06/28/25 15:24 Troponin T Baseline 20 ng/L (0-10) H 06/28/25 15:24 Troponin T 120 Minute 24.43 ng/L (0-10) H 06/28/25 18:24 Delta Troponin T 4.43 ABS# (0-10) 06/28/25 18:24 C-Reactive Protein 146.6 mg/L (0.0-4.9) H 06/28/25 15:24 NT-Pro-B Natriuret Pep 338 pg/mL (0-450) 06/28/25 15:24 Total Protein 7.3 g/dL (6.6-8.7) 06/28/25 15:24 Albumin 3.6 g/dL (3.5-5.2) 06/28/25 15:24 Globulin 3.7 g/dL (1.3-4.6) 06/28/25 15:24 TSH 0.12 uIU/mL (0.27-4.20) L 06/28/25 15:24 All radiology interpretation(s) finalized by discharge Discharge Plan Discharge Condition: Stable Referrals: Mable Hobson [Primary Care Provider, [facility]] Print Language: Vietnamese Coding Level of Care Code ED Media Relations Intern for Amita Grayson
--- NOTE | 2025-06-28 14:50 | XRR_ITS ---
PROCEDURE INFORMATION: Exam: XR Chest Exam date and time: 06/28/2025 3:02 PM Age: 84 years old Clinical indication: Cough; Additional info: Cough; SOB TECHNIQUE: Imaging protocol: Radiologic exam of the chest. Views: 1 view. COMPARISON: No relevant prior studies available. FINDINGS: Lungs: Unremarkable. No consolidation. Pleural spaces: Unremarkable. No pleural effusion. No pneumothorax. Heart/Mediastinum: Unremarkable. No cardiomegaly. Bones/joints: Unremarkable. XR/XR chest 1V portable [id number] IMPRESSION: No acute findings.
--- NOTE | 2025-06-28 14:50 | XRR_ITS ---
PROCEDURE INFORMATION: Exam: XR Left Wrist Exam date and time: 06/28/2025 3:02 PM Age: 84 years old Clinical indication: Pain; Wrist; Left; Additional info: Lt wrist pain/swelling/erythema; No known injury TECHNIQUE: Imaging protocol: Radiologic exam of the left wrist. Views: 1 or 2 views. COMPARISON: No relevant prior studies available. FINDINGS: Bones/joints: Diffuse osteopenia. No acute displaced fracture or dislocation. Severe degenerative changes. Soft tissues: Soft tissue edema. XR/XR wrist LT 2V [id number] IMPRESSION: 1. No acute displaced fracture or dislocation. 2. Diffuse osseous demineralization with degenerative change and soft tissue edema.
--- NOTE | 2025-06-28 14:52 | USR_ITS ---
PROCEDURE INFORMATION: Exam: US Duplex Lower Extremity Veins, Bilateral Exam date and time: 06/28/2025 4:49 PM Age: 84 years old Clinical indication: Swelling (edema) of limb; Lower extremity, bilateral TECHNIQUE: Imaging protocol: Real-time duplex ultrasound of the bilateral extremities with 2-D nino scale, color Doppler flow and spectral waveform analysis including responses to compression and other maneuvers (when performed) with image documentation. Complete exam focused on the lower extremity veins. COMPARISON: No relevant prior studies available. FINDINGS: Right deep veins: Unremarkable. The common femoral, femoral, proximal profunda femoral and popliteal veins are patent without thrombus. Normal Doppler waveforms. Normal compressibility and/or augmentation response. Left deep veins: Unremarkable. The common femoral, femoral, proximal profunda femoral and popliteal veins are patent without thrombus. Normal Doppler waveforms. Normal compressibility and/or augmentation response. Superficial veins: Greater saphenous veins at the saphenofemoral junctions are patent bilaterally without thrombus. Soft tissues: Partly complex collection within soft tissues of right popliteal fossa likely representing Driver's cyst. US/CV venous duplex [facility] [id number] IMPRESSION: Negative for deep venous thrombosis within bilateral lower extremities.
[2025-06-28] MEDS: lidocaine 1% INJ 50 mL 20 ML INJECTION (15:16)
[2025-06-28 15:30] LABS: Hematocrit 40.4 % (36-47); Hemoglobin 13.20 g/dL (11.27-16.99); Mean Corpuscular HGB Conc 32.7 g/dL (30-55); Mean Corpuscular Hemoglobin 28.7 pg (27-33); Mean Corpuscular Volume 87.8 fl (85-98); Nucleated Red Blood Cells % 0 %; Platelet Count 353 10^3/cmm (157-399); Red Blood Count 4.60 10^6/uL (3.85-5.65); White Blood Count 15.26 10^3/uL (3.29-11.43)
[2025-06-28 15:56] LABS: Alanine Aminotransferase 8 U/L (0-33); Albumin Level 3.6 g/dL (3.5-5.2); Alkaline Phosphatase 102 U/L (35-105); Anion Gap 19.7 (5-19); Aspartate Amino Transferase 15 U/L (0-32); Blood Urea Nitrogen 14 mg/dL (8-23); Calcium 9.5 mg/dL (8.5-10.5); Carbon Dioxide 23 mmol/L (22-29); Chloride 97 mmol/L (98-107); Creatinine Clr Calc Pharmacy 64.4337; Globulin 3.7 g/dL (1.3-4.6); Glucose 106 mg/dL (65-115); Osmolality Calculated 283 mOsm/kg (285-295); Potassium 3.7 mmol/L (3.5-5.1); Sodium 136 mmol/L (136-145); Total Protein 7.3 g/dL (6.6-8.7)
[2025-06-28 16:15] LABS: NT Pro B Type Natriuretic Pept 338 pg/mL (0-450); Thyroid Stimulating Hormone 0.12 uIU/mL (0.27-4.20)
--- NOTE | 2025-06-28 17:31 | CTR_ITS ---
PROCEDURE INFORMATION: Exam: CTA Chest With Contrast Exam date and time: 06/28/2025 5:52 PM Age: 84 years old Clinical indication: Abdominal tenderness; Abdominal pain; Generalized; Dyspnea; Chest pressure; Additional info: Dyspnea, abdominal pain, pe protocol TECHNIQUE: Imaging protocol: Computed tomographic angiography of the chest with contrast. Exam focused on the arteries. 3D rendering (Not supervised by radiologist): MIP and/or 3D reconstructed images were created by the technologist. Radiation optimization: All CT scans at this facility use at least one of these dose optimization techniques: automated exposure control; mA and/or kV adjustment per patient size (includes targeted exams where dose is matched to clinical indication); or iterative reconstruction. Contrast material: OMNIPAQUE 350; Contrast volume: 100 ml; Contrast route: INTRAVENOUS (IV); COMPARISON: CR (CHEST, ) 06/28/2025 3:02 PM RADIATION DOSE METRICS: Total DLP (mGy-cm): 1076.08 FINDINGS: Pulmonary arteries: Normal. No pulmonary emboli. Aorta: Unremarkable. No aortic aneurysm. No aortic dissection. Lungs: Calcified granuloma within right upper and lower lobe. New line bibasilar atelectasis. No focal consolidation. Pleural spaces: Unremarkable. No pneumothorax. No pleural effusion. Heart: Unremarkable. No cardiomegaly. No pericardial effusion. Lymph nodes: Unremarkable. No enlarged lymph nodes. Diaphragm: Small hiatal hernia. Bones/joints: Unremarkable. No acute fracture. Soft tissues: Unremarkable. PROCEDURE INFORMATION: Exam: CT Abdomen And Pelvis With Contrast Exam date and time: 06/28/2025 5:52 PM Age: 84 years old Clinical indication: Abdominal tenderness; Abdominal pain; Generalized; Dyspnea; Chest pressure; Additional info: Dyspnea, abdominal pain, pe protocol TECHNIQUE: Imaging protocol: Computed tomography of the abdomen and pelvis with contrast. Radiation optimization: All CT scans at this facility use at least one of these dose optimization techniques: automated exposure control; mA and/or kV adjustment per patient size (includes targeted exams where dose is matched to clinical indication); or iterative reconstruction. Contrast material: OMNIPAQUE 350; Contrast volume: 100 ml; Contrast route: INTRAVENOUS (IV); COMPARISON: CR (CHEST, ) 06/28/2025 3:02 PM RADIATION DOSE METRICS: Total DLP (mGy-cm): 1076.08 FINDINGS: Lungs: Unremarkable. Diaphragm: Small hiatal hernia. Liver: Normal. No mass. Gallbladder and biliary ducts: Distended gallbladder without gallstones with asymmetric wall thickening. Pancreas: Normal. No ductal dilation. Spleen: Normal. No splenomegaly. Adrenal glands: Normal. No mass. Kidneys and ureters: Normal. No hydronephrosis. Stomach and bowel: Multiple nondilated fluid-filled loops of small bowel. Large colonic stool burden. Colonic diverticulosis without CT evidence of acute diverticulitis. Appendix: No evidence of appendicitis. Intraperitoneal space: Small amount of free pelvic fluid. Vasculature: Unremarkable. No abdominal aortic aneurysm. Lymph nodes: Unremarkable. No enlarged lymph nodes. Urinary bladder: Unremarkable as visualized. Reproductive: Unremarkable as visualized. Bones/joints: Diffuse degenerative changes within visualized spine. Soft tissues: Unremarkable. CT/CT angio chest w abd pel w con IMPRESSION: Negative for pulmonary emboli. No focal consolidation. IMPRESSION: 1. Multiple fluid-filled nondilated loops of small bowel, nonspecific findings but may be seen with enteritis of infectious/inflammatory etiology. 2. Colonic diverticulosis without CT evidence of acute diverticulitis. 3. Distended gallbladder without gallstones with asymmetric wall thickening. If there is concern for gallbladder pathology correlation with liver enzymes and/or evaluation with dedicated ultrasound is recommended. 4. Small amount of free pelvic fluid.
--- NOTE | 2025-06-28 17:42 | ECG_ITS ---
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 Measurements Intervals Mobile Rate: 91 P: 70 NC: 196 QRS: 40 QRSD: 104 T: 72 QT: 370 QTc: 455 Interpretive Statements SINUS RHYTHM No previous ECG available for comparison Electronically Signed On 06-28-2025 21:59:13 CDT by Best Pryor M.D. [id number] [id number]
[2025-06-28] MEDS: iohexol 350 mg/mL 500 mL Btl (per mL) IV (17:56)
[2025-06-28 18:24] LABS: Troponin(5th) Baseline 20 ng/L (0-10)
[2025-06-28] MEDS: piperacillin-tazobactam 4.5 GM in sodium chloride 0.9% (plus) 50 ML IV (18:33)
[2025-06-28 18:47] LABS: Troponin 5 2HR 24.43 ng/L (0-10); Troponin 5 2HR Delta 4.43 ABS# (0-10)
--- NOTE | 2025-06-28 21:35 | P.HP_ITS ---
Providers/Chief Complaint 2 Admitting Physician: Christoph Pelaez MD Primary Care Provider: Mable Hobson Chief Complaint: lt wrist pain History of Present Illness Haim Huynh is a 84 year old female in good health except for hypertension hyperlipidemia glaucoma comes in with 3 to 4 weeks of polyarthralgia. Started in the left hip and she was seen at [facility] by the nurse practitioner and started on prednisone taper 60 mg x 1 day 50 mg x 1 day tapering down to 10 mg. She states that at 20 mg she started to have pain and swelling. She has not had autoimmune arthritis PMR rheumatoid arthritis or lupus before. She had some chills but no fevers she has had some sweats. She lost 45 pounds in last 2 years but has been caring for her sick . recently had pneumonia is admitted in this hospital and is going to long-term facility potentially tomorrow. Patient denies rash or insect bite she denies any current infection but has not given a urine yet. Her last UTI was December 2024. Patient states she stays mostly in the house Patient has had migrating polyarthralgia and had her left wrist ulnar side tapped by Dr. Vega in the ER. additionally patient is requiring oxygen but she has never been a smoker and has never required oxygen in the past CT of the chest was negative for PE but the abdominal portion shows fluid-filled nondilated loops of small bowel seen with enteritis or inflammation there are diverticula without signs of diverticulitis Patient is companied by her son Cricket Martin, Sheba Martin her daughter and Fely Kwan her daughter as well as Jenni her great granddaughter. Review of Systems 2 Narrative: General 45 pounds weight loss chills and sweats no fevers Skin no rash no insect or tick bites. She stays in a house. 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 Also has glaucoma but uses her drops faithfully. Medications/Allergies Allergies Allergy/AdvReac Type Severity Reaction Status Date / Time No Known Allergies Allergy Verified 06/28/25 14:17 PFSH Acute 2 PFSH: Social History (Updated 06/28/25 @ 21:50 by Christoph Pelaez MD) Smoking and tobacco/nicotine status: never used tobacco/nicotine Alcohol intake: never Substance/Drug Use: never Additional social history: She wants DNR status as discussed with her son Cricket 2 daughters Sheba and Fely and myself Christoph Pelaez MD on 06/28/2025 Vitals/I&O/Wt Last Vital Signs Temp 98.1 F 06/28/25 14:10 Pulse 76 06/28/25 21:00 Resp 18 06/28/25 21:00 BP 128/68 06/28/25 21:00 Pulse Ox 93 06/28/25 21:00 O2 Del Method Room Air 06/28/25 21:00 O2 Flow Rate 2 06/28/25 18:30 Weight last 48 hrs Weight 88.904 kg Weight 196 g Physical Exam 2 Narrative: General well-developed modestly overweight female in no acute cardiopulmonary stress she is guarding her left wrist. CV regular rate and rhythm Lungs clear to auscultation bilaterally Abdomen positive bowel tones soft nontender Oropharynx Mallampati 1 Pupils equally round and reactive to light accommodation Neuro patient moves all extremities symmetrically. Skin no rash Joints she has inflammation and increased warmth of the left wrist without erythema markedly painful to range of motion and also tender to palpation with synovitis noted. She also has mild inflammation in the left ankle again without erythema. This joint is not tender to range of motion Neck no rash or tenderness no fluctuance Data 06/28/25 15:24 06/28/25 15:24 Micro: Microbiology 06/28/25 19:38 Blood Culture - Preliminary Blood SPECIMEN COLLECTED 06/28/25 19:33 Blood Culture - Preliminary Blood SPECIMEN COLLECTED A&P Assessment and plan 1. Polyarthritis of wrist: Unclear etiology. Suspicious for rheumatoid disease. Will treat with Decadron pending DOREEN and rheumatoid factor. Anticipate patient will be pain-free in 1 to 2 days and ready for discharge to follow-up with rheumatology. This could also represent a reactive arthritis to virus or other infection. Awaiting blood cultures. Awaiting urine sample Will send Lyme disease test she is at low risk for Rickettsia based on no fever rash and low risk for hepatitis due to age and lifestyle 2. Hypoxemia: As above start oxygen. And attributable to inflammatory condition not yet diagnosed. PDMP PDMP Reviewed: Not Reviewed Attestations 2 Medical Necessity Statement*: Patient is admitted to the hospital in observation awaiting wrist and blood cultures. I think she has an autoimmune inflammatory response which will respond to Decadron and can be discharged in 1 to 2 days Coding Level of Care Code 78036 Diagnoses Polyarthritis of wrist M13.0 Hypoxemia R09.02 Time Spent (min) 70
[2025-06-28] MEDS: sodium chlor 0.9% + KCl 20 mEq 20 MEQ/1,000 ML BAG 100 MEQ IV (22:05)
[2025-06-28 22:06] LABS: Troponin 5 6HR 24.75 ng/L (0-10); Troponin 5 6HR Delta 4.75 ng/L (0-12)
[2025-06-28 22:57] LABS: Glucose Urine UA Negative (Normal); Nitrate Urine Negative (Negative)
[2025-06-28 23:36] LABS: Specific Gravity, Urine 1.063 (1.005-1.030)
[2025-06-28 23:37] LABS: UA Manual Slide Review YES; UA Slide Review UA Slide Review Perf
[2025-06-28 23:38] LABS: Add Urine Microscopic? YES
[2025-06-28 23:39] LABS: Universal Test for UA Present (0)
[2025-06-29] VITALS (7 sets, daily range): BP systolic 114–142; BP diastolic 62–81; PULSE 71–83; RESP 17–19; TEMP 36.4–36.9; O2SAT 91–94
[2025-06-29] MEDS: HYDROcodone-acetaminophen 5-325 mg Tablet 1 TAB PO (00:11)
[2025-06-29 03:33] LABS: Hematocrit 34.1 % (36-47); Hemoglobin 11.20 g/dL (11.27-16.99); Mean Corpuscular HGB Conc 32.8 g/dL (30-55); Mean Corpuscular Hemoglobin 28.5 pg (27-33); Mean Corpuscular Volume 86.8 fl (85-98); Nucleated Red Blood Cells % 0 %; Platelet Count 296 10^3/cmm (157-399); Red Blood Count 3.93 10^6/uL (3.85-5.65); White Blood Count 11.83 10^3/uL (3.29-11.43)
[2025-06-29 04:01] LABS: Anion Gap 16.4 (5-19); Blood Urea Nitrogen 13 mg/dL (8-23); Calcium 8.8 mg/dL (8.5-10.5); Carbon Dioxide 23 mmol/L (22-29); Chloride 102 mmol/L (98-107); Creatinine Clr Calc Pharmacy 63.3621; Glucose 99 mg/dL (65-115); Osmolality Calculated 286 mOsm/kg (285-295); Potassium 3.4 mmol/L (3.5-5.1); Sodium 138 mmol/L (136-145)
[2025-06-29] MEDS: sodium chlor 0.9% + KCl 20 mEq 20 MEQ/1,000 ML BAG 100 MEQ IV ×2 (06:25→15:58)
--- NOTE | 2025-06-29 10:33 | PM.PN ---
Subjective Subjective: Left wrist tenderness around thumb joints, edema. Vitals/I&O/Wt Last Vital Signs Temp 97.8 F 06/29/25 07:54 Pulse 72 06/29/25 07:54 Resp 17 06/29/25 07:54 BP 118/64 06/29/25 07:54 Pulse Ox 93 06/29/25 07:54 O2 Del Method Nasal Cannula 06/29/25 07:54 O2 Flow Rate 2 06/28/25 18:30 06/28/25 06/29/25 06/29/25 22:59 06:59 14:59 Intake Total 1123.333 / 1123.333 240 / 240 Output Total / Balance 1121.333 / 1121.333 240 / 240 Weight last 48 hrs Weight 86.239 kg Weight 85.774 kg Weight 88.904 kg Weight 196 g Physical Exam Const: COMMON NORMALS: no acute distress, average body habitus, patient oriented x3 and no limitations HENMT: COMMON NORMALS: normocephalic and atraumatic HEAD & SCALP: normocephalic and atraumatic Eye: COMMON NORMALS: Equal, round and reactive pupils present and EOMs intact bilaterally PUPIL: Yes Equal, round and reactive pupils present Resp: COMMON NORMALS: normal respiratory effort and clear to auscultation bilaterally AUSCULTATION: clear to auscultation bilaterally Cardio: COMMON NORMALS: regular rate, regular rhythm, No gallops present (Cardio), No murmurs present (Cardio) and No rub (Cardio) RATE: regular rate RHYTHM: regular rhythm GI: COMMON NORMALS: Soft to palpation, No hepatosplenomegaly present and no masses PALPATION: Yes Soft to palpation and Yes No hepatosplenomegaly present Extremity: NARRATIVE EXTREMITY EXAM: tenderness over hip, ankle on right and left wrist especially around thumb joints. Edema of left wrist and hand. Neuro: COMMON NORMALS: patient oriented x3 and CN's II-XII intact bilaterally Data 06/29/25 02:50 06/29/25 02:50 Micro: Microbiology 06/28/25 19:38 Blood Culture - Preliminary Blood SPECIMEN COLLECTED 06/28/25 19:33 Blood Culture - Preliminary Blood SPECIMEN COLLECTED A&P Assessment and plan 1. Polyarthritis of wrist: 2. Hypoxemia: Plan: 84 year old female presenting with polyarthritis and new hypoxemia. - Polyarthritis of wrist: - Suspicious for rheumatoid disease. - cont. Decadron 4 mg PO BID inpatient, can likely do burst dosing on D/C without taper - DOREEN pending, rheumatoid factor elevated. - This could also represent a reactive arthritis to virus or other infection, serology pending - Awaiting blood cultures. - UA negative for infection, contaminated sample - will need outpatient follow up with rheumatology after discharge for steroid sparing treatment as indicated. Hypoxemia: - mild but desatting when off - exercise oximetry prior to d/c, ordered for AM PPx: lovenox Diet: HH Disposition - likely able to D/C in the AM if swelling/pain improved - ex/ox in the AM - follow up with rheumatology after discharge. PDMP PDMP Reviewed: Not Reviewed Attestations Medical Necessity Statement*: Observation for RA flare, hypoxia. Time Spent in Patient Care: 16 - 35 minutes (>than 50% of time spent in counselling and/or direct pt care on unit). Coding Level of Care Code Acute Code for [facility] Fwd Diagnoses Polyarthritis of wrist M13.0 Hypoxemia R09.02
[2025-06-30] VITALS: BP 119/62; PULSE 65; RESP 16; TEMP 36.3; O2SAT 91
[2025-06-30] MEDS: sodium chlor 0.9% + KCl 20 mEq 20 MEQ/1,000 ML BAG 100 MEQ IV (02:48)
[2025-06-30 04:00] VITALS: BP 128/70; PULSE 68; RESP 17; TEMP 36.2; O2SAT 94
[2025-06-30 05:20] LABS: Hematocrit 36.0 % (36-47); Hemoglobin 11.50 g/dL (11.27-16.99); Mean Corpuscular HGB Conc 31.9 g/dL (30-55); Mean Corpuscular Hemoglobin 28.8 pg (27-33); Mean Corpuscular Volume 90.2 fl (85-98); Nucleated Red Blood Cells % 0 %; Platelet Count 310 10^3/cmm (157-399); Red Blood Count 3.99 10^6/uL (3.85-5.65); White Blood Count 10.05 10^3/uL (3.29-11.43)
[2025-06-30 05:59] LABS: Anion Gap 10.4 (5-19); Blood Urea Nitrogen 14 mg/dL (8-23); Calcium 8.8 mg/dL (8.5-10.5); Carbon Dioxide 23 mmol/L (22-29); Chloride 109 mmol/L (98-107); Creatinine Clr Calc Pharmacy 64.1718; Glucose 145 mg/dL (65-115); Osmolality Calculated 289 mOsm/kg (285-295); Potassium 4.4 mmol/L (3.5-5.1); Sodium 138 mmol/L (136-145)
[2025-06-30 07:53] VITALS: BP 117/73; PULSE 62; RESP 16; TEMP 36.4; O2SAT 93
[2025-06-30 09:14] VITALS: O2SAT 90; O2SAT 92
[2025-06-30 11:39] VITALS: BP 113/71; PULSE 70; RESP 18; TEMP 36.6; O2SAT 92
[2025-06-30 12:45] LABS: COMPLEMENT COMPONENT C3C 229 mg/dL; COMPLEMENT COMPONENT C4C 36 mg/dL
[2025-06-30 14:29] LABS: COMPLEMENT, TOTAL (CH50) >60 U/mL (31-60)
[2025-06-30 16:20] VITALS: BP 113/71; PULSE 70; RESP 18; TEMP 36.6; O2SAT 92
[2025-06-30 16:35] LABS: Lymes IGG WB <0.90 index
--- NOTE | 2025-06-30 18:08 | PM.DCS ---
Discharge Providers Date of Admission: 06/28/25 21:04 Date of Discharge: June 30, 2025 Attending Provider at Admission: Christoph Pelaez MD Attending Provider at Discharge: Fany Hatch MD Primary Care Provider: Mable Hobson Diagnoses at Discharge Discharge Diagnosis 1. Polyarthritis of wrist: 2. Hypoxemia: Reason for Visit Reason for Visit: lt wrist pain Brief History: Haim Huynh is a 84 year old female in good health except for hypertension hyperlipidemia glaucoma comes in with 3 to 4 weeks of polyarthralgia. Started in the left hip and she was seen at [facility] by the nurse practitioner and started on prednisone taper 60 mg x 1 day 50 mg x 1 day tapering down to 10 mg. She states that at 20 mg she started to have pain and swelling. She has not had autoimmune arthritis PMR rheumatoid arthritis or lupus before. She had some chills but no fevers she has had some sweats. She lost 45 pounds in last 2 years but has been caring for her sick . Patient denies rash or insect bite she denies any current infection but has not given a urine yet. Her last UTI was December 2024. Patient states she stays mostly in the house Patient has had migrating polyarthralgia and had her left wrist ulnar side tapped by Dr. Vega in the ER. additionally patient is requiring oxygen but she has never been a smoker and has never required oxygen in the past CT of the chest was negative for PE but the abdominal portion shows fluid-filled nondilated loops of small bowel seen with enteritis or inflammation there are diverticula without signs of diverticulitis Hospital Course Hospital Course The patient was kept in the hospital for evaluation and management of her platelets for which she was taking steroids.The patient condition improved. UA did not show any infection and the blood cultures preliminary were negative. Labs were reviewed. 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 The patient was informed about her condition and further management plan. She agreed without any language barrier Physical Exam Narrative: General: Alert oriented x3, patient seen HEENT: Normocephalic, atraumatic, EOMI, breathing comfortably Cardio: Regular rate rhythm, normal S1-S2, no murmurs rubs gallops, JVD normal Respiratory: Good bilateral air entry, no wheezes no rhonchi appreciated GI: Abdomen soft, nontender, nondistended, normoactive bowel sounds present all 4 quadrants, Neuro: Cranial nerves II to XII intact, strength 5/5, sensation 5/5, no gross neurological deficit Behavior: Appropriate and cooperative Extremities: Pulses 2+, no edema, no cyanosis Skin: Visible skin intact, no rashes Discharge Data Studies Completed and Pending Completed Studies During Hospitalization Category Date Time Status CT Angio Chest + Abdomen Pelvis w/ contrast; 53884 + Cat Scan 06/28/25 17:31 Completed 39324 Stat XR chest 1V portable [id number] Stat Exams 06/28/25 14:50 Completed XR wrist LT 2V [id number] Stat Exams 06/28/25 14:50 Completed US venous duplex lower extremity bilat [CV venous Ultrasound 06/28/25 14:52 [place] [id number]] Stat Pending at discharge Category Date Time Status DOREEN Profile Rheumatology Routine Lab 06/28/25 15:24 Results Blood Culture Stat Lab 06/28/25 19:38 Results Body Fluid Culture Stat Lab 06/28/25 16:30 Results Parvovirus B19 DNA PCR Routine Lab 06/28/25 23:18 Received Radiology Impressions Chest X-Ray 06/28/25 14:50 IMPRESSION: No acute findings. Wrist X-Ray 06/28/25 14:50 IMPRESSION: 1. No acute displaced fracture or dislocation. 2. Diffuse osseous demineralization with degenerative change and soft tissue edema. Venous Duplex 06/28/25 14:52 IMPRESSION: Negative for deep venous thrombosis within bilateral lower extremities. Chest/Abdomen/Pelvis CT 06/28/25 17:31 IMPRESSION: Negative for pulmonary emboli. No focal consolidation. IMPRESSION: 1. Multiple fluid-filled nondilated loops of small bowel, nonspecific findings but may be seen with enteritis of infectious/inflammatory etiology. 2. Colonic diverticulosis without CT evidence of acute diverticulitis. 3. Distended gallbladder without gallstones with asymmetric wall thickening. If there is concern for gallbladder pathology correlation with liver enzymes and/or evaluation with dedicated ultrasound is recommended. 4. Small amount of free pelvic fluid. Laboratory Results WBC 10.05 10^3/uL (3.29-11.43) 06/30/25 04:58 RBC 3.99 10^6/uL (3.85-5.65) 06/30/25 04:58 Hgb 11.50 g/dL (11.27-16.99) 06/30/25 04:58 Hct 36.0 % (36-47) 06/30/25 04:58 MCV 90.2 fl (85-98) 06/30/25 04:58 MCH 28.8 pg (27-33) 06/30/25 04:58 MCHC 31.9 g/dL (30-55) 06/30/25 04:58 RDW 13.4 % (12.1-15.1) 06/30/25 04:58 Plt Count 310 10^3/cmm (157-399) 06/30/25 04:58 MPV 10.6 fL (7.4-10.4) H 06/30/25 04:58 Neut % (Auto) 83.0 % 06/30/25 04:58 Lymph % (Auto) 11.5 % 06/30/25 04:58 Pratt % (Auto) 4.5 % 06/30/25 04:58 Eos % (Auto) 0.0 % 06/30/25 04:58 Baso % (Auto) 0.1 % 06/30/25 04:58 Neut # (Auto) 8.34 10^3/uL (1.8-7.7) H 06/30/25 04:58 Lymph # (Auto) 1.2 10^3/uL (0.8-4.8) 06/30/25 04:58 Pratt # (Auto) 0.5 10^3/uL (0.2-0.9) 06/30/25 04:58 Eos # (Auto) 0.0 10^3/uL (0.0-0.8) 06/30/25 04:58 Baso # (Auto) 0.0 10^3/uL (0.0-0.1) 06/30/25 04:58 Nucleated RBC % (auto) 0 % 06/30/25 04:58 Nucleated RBCs # 0.0 /100WBC 06/30/25 04:58 ESR 46 mm/hr (0-15) H 06/28/25 15:24 D-Dimer 1.70 ug/mLFEU (0-0.59) H 06/28/25 15:24 Sodium 138 mmol/L (136-145) 06/30/25 04:58 Potassium 4.4 mmol/L (3.5-5.1) 06/30/25 04:58 Chloride 109 mmol/L (98-107) H 06/30/25 04:58 Carbon Dioxide 23 mmol/L (22-29) 06/30/25 04:58 Anion Gap 10.4 (5-19) 06/30/25 04:58 BUN 14 mg/dL (8-23) 06/30/25 04:58 Creatinine 0.6 mg/dL (0.5-0.9) 06/30/25 04:58 GFR Calculation Not Reportable 06/30/25 04:58 Glucose 145 mg/dL (65-115) H 06/30/25 04:58 Calculated Osmolality 289 mOsm/kg (285-295) 06/30/25 04:58 Calcium 8.8 mg/dL (8.5-10.5) 06/30/25 04:58 Total Bilirubin 0.7 mg/dL (0.15-1.2) 06/28/25 15:24 AST 15 U/L (0-32) 06/28/25 15:24 ALT 8 U/L (0-33) 06/28/25 15:24 Alkaline Phosphatase 102 U/L (35-105) 06/28/25 15:24 Troponin T Baseline 20 ng/L (0-10) H 06/28/25 15:24 Troponin T 120 Minute 24.43 ng/L (0-10) H 06/28/25 18:24 Delta Troponin T 4.43 ABS# (0-10) 06/28/25 18:24 Troponin T Hi Sens 6Hr 24.75 ng/L (0-10) H 06/28/25 21:32 Troponin T Hi Sens 6Hr Delta 4.75 ng/L (0-12) 06/28/25 21:32 C-Reactive Protein 146.6 mg/L (0.0-4.9) H 06/28/25 15:24 NT-Pro-B Natriuret Pep 338 pg/mL (0-450) 06/28/25 15:24 Total Protein 7.3 g/dL (6.6-8.7) 06/28/25 15:24 Albumin 3.6 g/dL (3.5-5.2) 06/28/25 15:24 Globulin 3.7 g/dL (1.3-4.6) 06/28/25 15:24 TSH 0.12 uIU/mL (0.27-4.20) L 06/28/25 15:24 Urine Color Yellow (Yellow) 06/28/25 22:38 Urine Appearance Clear (CLEAR) 06/28/25 22:38 Urine pH 5.5 (5-7) 06/28/25 22:38 Ur Specific [place] 1.063 (1.005-1.030) H 06/28/25 22:38 Urine Protein Trace (Negative) A 06/28/25 22:38 Urine Glucose (UA) Negative (Normal) 06/28/25 22: Urine Ketones 2+ (Negative) H 06/28/25 22:38 Urine Blood Negative (Negative) 06/28/25 22:38 Urine Nitrate Negative (Negative) 06/28/25 22:38 Urine Bilirubin Negative (Negative) 06/28/25 22:38 Urine Urobilinogen 1.0 mg/dL (Negative) 06/28/25 22:38 Ur Leukocyte Esterase Negative (Negative) 06/28/25 22:38 Urine RBC 3-5 /hpf (0-2) 06/28/25 22:38 Urine WBC 5-10 /hpf (0-5) H 06/28/25 22:38 Ur Squamous Epith Cells 11-20 /hpf (0-5) H 06/28/25 22:38 Amorphous Sediment Not Reportable 06/28/25 22:38 Urine Bacteria 2+ /hpf (NONE) H 06/28/25 22:38 Hyaline Casts 3-5 /lpf 06/28/25 22:38 Rheumatoid Factor 17.0 IU/mL (0-14) H 06/28/25 23:18 Complement C3c 229 mg/dL 06/28/25 15:24 Complement C4c 36 mg/dL 06/28/25 15:24 CH50 Classical Pathway >60 U/mL (31-60) H 06/28/25 15:24 Lyme IgG (Western Blot 2) <0.90 index 06/28/25 23:18 Vitals Last Vital Signs Temp 97.8 F 06/30/25 16:20 Pulse 70 06/30/25 16:20 Resp 18 06/30/25 16:20 BP 113/71 06/30/25 16:20 Pulse Ox 92 06/30/25 16:20 O2 Del Method Room Air 06/30/25 11:39 O2 Flow Rate 2 06/30/25 04:00 Discharge Plan Discharge Patient Disposition: Home Condition: Stable Prescriptions: New dexamethasone 4 mg Tablet 4 mg PO BID@0500,1700 3 Days Qty: 6 0RF Continued latanoprost 0.005 % drops 1 drp ophthalmic (eye) QPM tizanidine 4 mg tablet 4 mg PO Q8H PRN (Reason: Muscle Spasm) amlodipine 10 mg tablet 10 mg PO DAILY simvastatin 20 mg tablet 20 mg PO BEDTIME gabapentin 300 mg capsule 300 mg PO DAILY potassium chloride 10 mEq tablet,ER particles/crystals 10 meq PO DAILY hydrochlorothiazide 12.5 mg tablet 12.5 mg PO DAILY Multi For Her 50 Plus 400-80 mcg Capsule 1 cap PO DAILY Discharge Order = DC NOW: Discharge Order (Routine); Ordered 06/30/25 Ordered By: Fany Hatch Referrals: Weston Atkinson MD [Physician, Rheumatology] - 1-3 days Referral Note: We have notified your physician's clinic of the need for a follow-up appointment to be scheduled. If you have not heard from them within the next 2 business days, please call them directly. Mable Hobson [Primary Care Provider, Family Practice] - 07/04/25 8:20 am Discharge Diet: Advance as tolerated and Usual diet Discharge Activity: Resume usual activity and Increase activity as tolerated Patient Instructions: Dexamethasone (By mouth), Hypoxemia (DC), Opioid Safety, Patient Portal & [facility] Instructions Discharge Attestations Time Spent in Discharge Care*: less than 30 min Specific Discharge Activities: educating patient, educating and/or supporting family/caregiver, discussing with pcp/other providers, discussing with case technician/social workers/dc planners, documenting/other paperwork and evaluating patient/reviewing data Status at Discharge: Cognitive status at discharge: cognitively intact, Behavioral status at discharge: cooperative, Functional status at discharge: independent ambulation, Overall status at discharge: patient is back to baseline Quality Metrics Clinical Quality Measures [ No reported AMI, CVA or VTE this stay] Coding Level of Care Code Acute Code for Chg Fwd Diagnoses Polyarthritis of wrist M13.0 Hypoxemia R09.02
[2025-07-02 12:15] LABS: THYROID PEROXIDASE ANTIBODIES <1 IU/mL (<9)
== END 2025-06-30 13:45 | disposition home or self-care (01) ==
LOC: ER 21:34 → MEDSURG 22:04
PROVIDERS: Internal Medicine; Admitting Provider Internal Medicine; Emergency Provider Emergency Medicine; PCP Registered Nurse; Visit Provider Student in an Organized Health Care Education/Training Program
DX: R09.02 Hypoxemia (principal); M13.0 Polyarthritis, unspecified; I10 Essential (primary) hypertension; E78.5 Hyperlipidemia, unspecified; H40.9 Unspecified glaucoma
CPT/HCPCS: 36415; 71045; 71275; 73100; 74177; 80048; 80053; 81001; 83880; 84443; 84484; 85025; 85378; 85651; 86140; 86160; 86162; 86235; 86255; 86376; 86431; 86617; 87040; 87070; 87075; 87205; 87799; 93005; 93970; 94664; 94760; 96372; G0378; J1650; J2543; J3480; J8540; J9999

== ENCOUNTER → 2025-07-15 09:13 | Outpatient (BNVA) | payer MEDICARE, SELFPAY | PROVIDERS: PCP Registered Nurse; Visit Provider Internal Medicine Rheumatology | DX: R76.8 Other specified abnormal immunological findings in serum (principal); R79.82 Elevated C-reactive protein (CRP); R70.0 Elevated erythrocyte sedimentation rate; M18.0 Bilateral primary osteoarthritis of first carpometacarpal joints; M25.50 Pain in unspecified joint | CPT/HCPCS: 36415; 85651; 86140; 99204 ==